=== PATIENT | female | born 1950 | race Caucasian/White ===

== ENCOUNTER → 2017-08-28 08:09 | Outpatient (CLI) | payer MEDICARE, OTHER, SELFPAY ==
[2017-08-29 09:07] LABS: DHEA Sulfate 69.6 ug/dL (20.4-186.6)
[2017-08-29 15:05] LABS: Sex Hormone-binding Globulin 55.1 nmol/L (17.3-125.0)
== END ==
PROVIDERS: Family Provider Family Medicine; PCP Family Medicine; Visit Provider Obstetrics & Gynecology
DX: N95.1 Menopausal and female climacteric states (principal)
CPT/HCPCS: 36415; 82533; 82627; 82670; 84270; 84403; 82626

== ENCOUNTER → 2017-10-09 07:58 | Outpatient (CLI) | payer MEDICARE, OTHER, SELFPAY ==
[2017-10-09 09:31] LABS: Anion Gap 4 (5-15); BUN 25 mg/dL (7-18); Calcium,Total 8.8 mg/dL (8.5-10.1); Chloride 105 mmol/L (98-107); Creatinine, Serum 0.93 mg/dL (0.55-1.02); EST Glomerular Filtration Rate 64 mL/min (>60); Est Glom Filt Rate - Afr Amer 78 mL/min (>60); Estradiol < 11.0 pg/mL; Glucose 93 mg/dL (74-106); Potassium 3.9 mmol/L (3.5-5.1); Sodium Level 140 mmol/L (136-145)
== END ==
PROVIDERS: Family Provider Family Medicine; PCP Family Medicine; Visit Provider Obstetrics & Gynecology
DX: N95.1 Menopausal and female climacteric states (principal)
CPT/HCPCS: 36415; 80048; 82024; 82533; 82627; 82670; 84244; 84270; 84403; 82626

== ENCOUNTER → 2017-10-15 15:14 | Outpatient (CLI) | payer MEDICARE, OTHER, SELFPAY ==
[2017-10-20 11:23] LABS: Renin, Plasma 0.512 ng/mL/hr (0.167-5.380)
== END ==
PROVIDERS: Family Provider Family Medicine; PCP Family Medicine; Visit Provider Obstetrics & Gynecology
DX: N95.1 Menopausal and female climacteric states (principal)
CPT/HCPCS: 84244

== ENCOUNTER → 2017-11-08 15:15 | Outpatient (CLI) | payer MEDICARE, OTHER, SELFPAY ==
--- NOTE | 2017-11-08 15:17 | BI_ITS ---
MAMMOGRAPHY - BILATERAL SCREENING REASON FOR EXAM: Female, 67 years old. Routine annual screening examination. PERTINENT HISTORY: Non-contributory. Remote right excisional breast biopsy. TECHNIQUE: Digital bilateral breast linda (3D mammographic acquisition) in the CC and MLO projections. 2-D mediolateral oblique (MLO) and craniocaudad (CC) views of both breasts were obtained. CAD: Full Field Digital Mammography with Computer Added Detection was performed. COMPARISON: Comparison is made with prior study dated October 05, 2016. FINDINGS: Breast Composition: The breasts are heterogeneously dense, which may obscure small masses. There are no dominant masses or suspicious calcifications. Stable small benign-appearing bilateral axillary lymph nodes. No other significant abnormalities are identified. There has been no significant change since the prior study. BI/SCREENING MAMM (CAD), BILAT IMPRESSION: Stable bilateral screening mammogram. Yearly follow-up mammogram recommended. (A) ASSESSMENT CATEGORY: BIRADS Category 1: Negative. A letter regarding these results will be sent to the patient by the facility within 30 days. Approximately 10% of breast cancers are not detected by mammography. A normal mammogram should not delay biopsy of a clinically suspicious abnormality. [id number] Electronically Signed: Nik Wiggins MD at 8:33 EDT Tel [phone], Service support ,
== END ==
PROVIDERS: Family Provider Family Medicine; PCP Family Medicine; Visit Provider Obstetrics & Gynecology
DX: Z12.31 Encounter for screening mammogram for malignant neoplasm of breast (principal)
CPT/HCPCS: 77063; 77067

== ENCOUNTER → 2018-01-25 11:18 | Outpatient (CLI) | payer MEDICARE, OTHER, SELFPAY | PROVIDERS: Visit Provider Obstetrics & Gynecology | DX: N39.0 Urinary tract infection, site not specified (principal) | CPT/HCPCS: 87086; 87088 ==

== ENCOUNTER → 2018-06-29 16:10 | Outpatient (CLI) | payer MEDICARE, OTHER, SELFPAY | PROVIDERS: Family Provider Family Medicine; PCP Family Medicine; Referring Provider Obstetrics & Gynecology; Visit Provider Obstetrics & Gynecology | DX: R30.0 Dysuria (principal) | CPT/HCPCS: 87086; 87088 ==

== ENCOUNTER → 2018-07-14 12:27 | Outpatient (CLI) | payer MEDICARE, OTHER, SELFPAY ==
--- NOTE | 2018-07-13 | FLU_PTH ---
PATIENT: JASON LOJA LOC: [facility] U#:[id number] AGE/SX: 74/F ROOM: RE07/14/[address]: Dr. Gina Giang MD : 1950 BED: DIS: SPEC #: [id number] RECD: 07/14/18 12:04 STATUS: EDDIE SANJU #: [id number] NOAM: 07/13/18 00:[address]: Gina Giang DEPT: CYTOLOGY RECD BY: Pablo Almazan ENTERED: 07/15/18 07:42 SP TYPE: Fluid OTHR DR: Dr. Diego Hopkins MD Tissues: A - Thyroid gland, NOS B - Thyroid gland, NOS Procedures: Special Stain Group II Surgery Specimen Level IV Cytospin Fluid Cytology Other HEADER OPERATION: Ultrasound-guided right thyroid nodule PRE-OP DIAGNOSIS: Abnormal ultrasound right thyroid TISSUE SUBMITTED: A - Right thyroid aspirate for cytology, B - Right thyroid nodule FNA slides x8 DIAGNOSIS CYTOLOGY A. Fine needle aspiration, right thyroid nodule (cytospin and cell block): Adequate for evaluation. Negative, consistent with benign follicular nodule. B. Fine needle aspiration, right thyroid nodule (smears): Nondiagnostic. See comment. AM:shiraz 07/15/18 COMMENT B. The specimen primarily contains blood. Focal watery type colloid is suspected. Clinical correlation is necessary. CYTOLOGY STUDY Slides are reviewed. CYTOLOGY GROSS A - Received is 30 ml of cloudy brown fluid labeled with the patient's name and and designated per the requisition as right thyroid. Submitted for cytology preparation including cell block. B - Received are eight smears labeled with the patient's name and designated per the requisition as right thyroid nodule. Submitted for staining. 07/14/18 TC:5 CPT: 37070, 33516, 54388
== END ==
PROVIDERS: Family Provider Family Medicine; PCP Family Medicine; Referring Provider Surgery; Visit Provider Surgery
DX: R93.89 Abnormal findings on diagnostic imaging of other specified body structures (principal)
CPT/HCPCS: 88108; 88161; 88305; 88313

== ENCOUNTER → 2018-08-17 09:09 | Outpatient (CLI) | payer MEDICARE, OTHER, SELFPAY ==
--- NOTE | 2018-08-17 09:15 | BD_ITS ---
STUDY: DUAL ENERGY X-RAY ABSORPTIOMETRY / DXA REASON FOR EXAM: Female, 68 years old. The patient is postmenopausal. No loss of height. TECHNIQUE: Bone Mineral Density (BMD) measurements of lumbar spine and bilateral hips were obtained. COMPARISON: None. FINDINGS: Lumbar Spine (L1-L4): g/cm2 (0.891) / T-score (-2.3) / Z-score (-0.7) Findings are suggestive of osteopenia with a high fracture risk. Left Femur Total: g/cm2 (0.710) / T-score (-2.4) / Z-score (-1.0) Left Femoral Neck: g/cm2 (0.637) / T-score (-2.9) / Z-score (-1.3) Right Femur Total: g/cm2 (0.684) / T-score (-2.6) / Z-score (-1.2) Right Femoral Neck: g/cm2 (0.623) / T-score (-3.0) / Z-score (-1.4) BD/Dexa Bone Density Study IMPRESSION: The patient is considered osteoporotic as outlined below according to World Margar[employer] Organization (WHO) criteria with a high fracture risk. Reference Information: The T-score is the number of standard deviations above or below the standard which is normal for young adults at their peak bone mineral density. The World Health Organization (WHO) interprets the T-scores as follows: Above -1 Normal bone density Between -1 and -2.5 Osteopenia Equal to / or below -2.5 Osteoporosis As a practical clinical guideline, osteopenia may be graded as follows: Mild -1 through -1.5 Moderate -1.6 through -2.0 Severe -2.1 through -2.4 The Z-score is the number of standard deviations above or below age-matched controls. A Z-score of less than -1.5 would be considered abnormal. References: 1. NIH Osteoporosis and Related Bone Diseases http://www.osteo.org 2. International Society for Clinical Densitometry http://www.iscd.org 3. National Osteoporosis Foundation http://www.nof.org Electronically Signed: Nki Wiggins, at 9:11 EST , Service support ,
== END ==
PROVIDERS: Family Provider Family Medicine; PCP Family Medicine; Referring Provider Obstetrics & Gynecology; Visit Provider Obstetrics & Gynecology
DX: Z78.0 Asymptomatic menopausal state (principal); M81.0 Age-related osteoporosis without current pathological fracture
CPT/HCPCS: 77080

== ENCOUNTER 2018-08-29 08:56 | Emergency (ER) | payer MEDICARE, OTHER, SELFPAY ==
[2018-08-29 08:57] VITALS: BP 163/73; PULSE 68; RESP 6; TEMP 36.6; O2SAT 97; BMI 30.5
--- NOTE | 2018-08-29 09:12 | RAD_ITS ---
STUDY: X-RAY - LEFT KNEE REASON FOR EXAM: Female, 68 years old. Left knee injury. TECHNIQUE: 3 view(s) of the knee. COMPARISON: None. FINDINGS: Normal visualized distal femur. Normal visualized proximal tibia and fibula. Normal proximal tibiofibular articulation. Normal medial femorotibial compartment. Normal lateral femorotibial compartment. Normal patellofemoral articulation. The soft tissue structures are unremarkable. RAD/Knee 3 Views IMPRESSION: Normal x-ray examination of the knee. Electronically Signed: Nik Wiggins, at 9:45 EDT , Service support ,
[2018-08-29] MEDS: HYDROcodone Bitartrate/Apap 5/325 Tablet PO (09:27)
--- NOTE | 2018-08-29 10:07 | ED.VISSUMM ---
- ER Visit Summary Date of Service: 08/29/18 Chief Complaint: [Injury left knee] History of Present Illness: The patient is a 68 F [presents the emergency department complaint of pain in the left knee that occurred this morning while she was climbing up the steps. Patient states she has had some mild discomfort in her left knee for about a week but when she put weight on it while climbing steps this morning she felt a pop and immediately fell onto her knees. Patient unable to bear weight since that time. Patient states the pain kind of radiated up towards her hip and into her groin.] Physical Examination: [HEENT-PERRLA, EOMI. Cranial nerves II through XII grossly intact. TMs clear. Mucous membranes moist. No adenopathy. Cardiovascular-regular rate and rhythm without murmur or ectopy Lungs-clear to auscultation, chest wall stable without crepitus or subcu emphysema Abdomen-normoactive bowel sounds, soft, nontender, no rebound or rigidity, no peritoneal signs. Extremities-intact ?4, normal range of motion, normal pulses, atraumatic. Left knee-patient has no effusion noted. Patient has pain with range of motion in the knee. She does not tolerate ligamentous exam secondary to pain. She is neurovascular intact distally. She has no tenderness over the hip with logrolling.] Test Results: [X-rays of the left knee obtained showed no fractures or dislocations.] Emergency Department Course and Treatment: [Patient was given a dose of Centrahoma in the emergency department. Patient was given a knee immobilizer and crutches.] Treatment Plan: [Patient will be given crutches, knee immobilizer, and referral to orthopedics] Disposition: [Discharged home in stable condition] Impression: [Left knee sprain-possible internal derangement] This note was generated with [employer] dictation software. It may contain incorrect words, spelling, and punctuation that were not noted in review of the chart prior to signing ED Disposition - Plan for ED Patient: Referrals: Diego Hopkins MD [Primary Care Provider] -
--- NOTE | 2018-08-29 10:10 | DCINST.ED_ITS ---
ED Disposition - Plan for ED Patient: Instructions: ED Meniscal Injury Knee Poss Prescriptions: Hydrocodone Bitart/Apap 5-325 [[place] 5MG-325MG] 1 tab PO Q4H PRN PRN 2 Days #20 tab PRN Reason: Pain Referrals: Diego Hopkins MD [Primary Care Provider] - Scott Lima MD [STAFF PHYSICIAN] - 3-5 Days
== END 2018-08-29 10:59 | disposition home or self-care (01) ==
LOC: ED 09:22
PROVIDERS: Emergency Provider Emergency Medicine; Family Provider Family Medicine; PCP Family Medicine
DX: S83.92XA Sprain of unspecified site of left knee, initial encounter (principal); W10.9XXA Fall (on) (from) unspecified stairs and steps, initial encounter; Y93.9 Activity, unspecified; Y92.9 Unspecified place or not applicable; Y99.9 Unspecified external cause status; I10 Essential (primary) hypertension; M19.90 Unspecified osteoarthritis, unspecified site; J45.909 Unspecified asthma, uncomplicated
CPT/HCPCS: 73562; 99285

== ENCOUNTER → 2018-09-10 07:26 | Outpatient (CLI) | payer MEDICARE, OTHER, SELFPAY ==
[2018-08-29 08:57] VITALS: BMI 30.5
[2018-09-10 08:42] LABS: Hematocrit 40.4 % (37-47); Hemoglobin 13.4 g/dl (12.0-15.0); Mean Corp Hgb Conc 33.2 g/gl (32-36); Mean Corpuscular Hgb 30.3 pg (27.0-32.0); Mean Corpuscular Volume 91.4 fL (81-99); Mean Platelet Vol. 9.2 fl (6.2-12.0); Platelet Count 316 K/mm3 (150-450); RBC Distribution Width CV 13.3 % (11.6-14.6); RBC Distribution Width SD 43.9 fl (35.1-43.9); Red Blood Count 4.42 M/mm3 (4.2-5.4); White Blood Count 4.8 K/mm3 (4.4-11.0)
[2018-09-10 08:54] LABS: Scan Indicated on CBC? Y/N NO
[2018-09-10 08:55] LABS: Erythrocyte Sedimentation Rate 14 mm/hr (0-30)
[2018-09-10 09:38] LABS: AST(SGOT) 18 U/L (15-37); Alanine Aminotransfer ALT/SGPT 32 U/L (13-56); Albumin, Serum 3.4 g/dL (3.2-5.0); Alkaline Phosphatase 69 U/L (45-117); Bilirubin, Direct 0.16 mg/dL (0.00-0.30); CRP 5.04 mg/L (0.0-3.0); Calcium,Total 8.4 mg/dL (8.5-10.1); Globulin 3.4 g/dL (2.2-4.2); Phosphorus 3.3 mg/dL (2.5-4.9); Protein, Total 6.8 g/dL (6.4-8.2)
[2018-09-10 10:35] LABS: PTHIN 38.4 pg/mL (18.4-80.1)
[2018-09-10 10:36] LABS: Vitamin D,25 Hydroxy 25.4 ng/mL (29.95-100.01)
== END ==
PROVIDERS: Family Provider Internal Medicine; PCP Internal Medicine; Referring Provider Internal Medicine; Visit Provider Internal Medicine
DX: M81.0 Age-related osteoporosis without current pathological fracture (principal); Z78.0 Asymptomatic menopausal state
CPT/HCPCS: 36415; 80076; 82306; 82310; 83970; 84100; 85027; 85652; 86140

== ENCOUNTER → 2018-10-04 07:46 | Outpatient (CLI) | payer MEDICARE, OTHER, SELFPAY ==
--- NOTE | 2018-10-04 08:12 | EKG12_ITS ---
Test Reason : PREOP Blood Pressure : / mmHG Vent. Rate : 068 BPM Atrial Rate : 068 BPM P-R Int : 170 ms QRS Dur : 086 ms QT Int : 410 ms P-R-T Axes : 053 -02 014 degrees QTc Int : 435 ms Normal sinus rhythm Poor R wave progression Confirmed by HERMELINDO GARCIA, KARIS ([id number]), television news video editor SEAMUS MANCIA ([id number]) on 10/04/2018 3:54:09 PM Referred By: Oliver Loco Confirmed By:KARIS CASAREZ MD
[2018-10-04 08:23] LABS: Hematocrit 39.8 % (37-47); Hemoglobin 13.4 g/dl (12.0-15.0); Mean Corp Hgb Conc 33.7 g/gl (32-36); Mean Corpuscular Hgb 30.1 pg (27.0-32.0); Mean Corpuscular Volume 89.4 fL (81-99); Mean Platelet Vol. 8.6 fl (6.2-12.0); Platelet Count 299 K/mm3 (150-450); RBC Distribution Width CV 13.1 % (11.6-14.6); RBC Distribution Width SD 42.9 fl (35.1-43.9); Red Blood Count 4.45 M/mm3 (4.2-5.4); White Blood Count 4.3 K/mm3 (4.4-11.0)
[2018-10-04 08:24] LABS: Scan Indicated on CBC? Y/N NO
[2018-10-04 09:01] LABS: Anion Gap 3 (5-15); BUN 18 mg/dL (7-18); BUN/Creat Ratio 22.1 RATIO (10-20); Calcium,Total 8.8 mg/dL (8.5-10.1); Chloride 107 mmol/L (98-107); Creatinine, Serum 0.82 mg/dL (0.55-1.02); EST Glomerular Filtration Rate 74 mL/min (>60); Est Glom Filt Rate - Afr Amer 90 mL/min (>60); Glucose 93 mg/dL (74-106); Potassium 3.8 mmol/L (3.5-5.1); Sodium Level 140 mmol/L (136-145)
== END ==
PROVIDERS: Family Provider Internal Medicine; PCP Internal Medicine; Referring Provider Physician Assistant Surgical; Visit Provider Physician Assistant Surgical
DX: Z01.818 Encounter for other preprocedural examination (principal)
CPT/HCPCS: 36415; 80048; 85027; 93005

== ENCOUNTER → 2018-11-09 14:57 | Outpatient (CLI) | payer MEDICARE, OTHER, SELFPAY ==
--- NOTE | 2018-11-09 15:00 | BI_ITS ---
MAMMOGRAPHY - BILATERAL SCREENING REASON FOR EXAM: Female, 68 years old. Routine annual screening examination. PERTINENT HISTORY: Non-contributory. Prior bilateral breast aspirations. TECHNIQUE: Digital bilateral breast linda (3D mammographic acquisition) in the CC and MLO projections. 2-D mediolateral oblique (MLO) and craniocaudad (CC) views of both breasts were obtained. CAD: Full Field Digital Mammography with Computer Added Detection was performed. COMPARISON: Comparison is made with prior study dated November 08, 2017 and October 05, 2016. FINDINGS: Breast Composition: The breasts are heterogeneously dense, which may obscure small masses. There are no dominant masses or suspicious calcifications. Stable small bilateral axillary lymph nodes. No other significant abnormalities are identified. There has been no significant change since the prior study. BI/SCREENING MAMM (CAD), BILAT IMPRESSION: Stable bilateral screening mammogram. Yearly follow-up mammogram recommended. (A) ASSESSMENT CATEGORY: BIRADS Category 2: Benign. A letter regarding these results will be sent to the patient by the facility within 30 days. Approximately 10% of breast cancers are not detected by mammography. A normal mammogram should not delay biopsy of a clinically suspicious abnormality. [id number] Electronically Signed: Nik Wiggins, at 8:38 EDT , Service support ,
== END ==
PROVIDERS: Family Provider Internal Medicine; PCP Internal Medicine; Referring Provider Obstetrics & Gynecology; Visit Provider Obstetrics & Gynecology
DX: Z12.31 Encounter for screening mammogram for malignant neoplasm of breast (principal)
CPT/HCPCS: 77063; 77067

== ENCOUNTER → 2019-04-06 08:48 | Outpatient (CLI) | payer MEDICARE, OTHER, SELFPAY ==
--- NOTE | 2019-04-06 08:51 | BI_ITS ---
MAMMOGRAPHY - UNILATERAL DIAGNOSTIC: RIGHT BREAST REASON FOR EXAM: Female, 68 years old. Right breast pain. Remote right excisional breast biopsy. PERTINENT HISTORY: Non-contributory. TECHNIQUE: Digital unilateral breast linda (3D mammographic acquisition) in the CC and MLO projections. 2-D mediolateral oblique (MLO) and craniocaudad (CC) views of both breasts were obtained. CAD: Full Field Digital Mammography with Computer Added Detection was performed. COMPARISON: Comparison is made with prior study November 09, 2018 and November 08, 2017. FINDINGS: Breast Composition: The breasts are heterogeneously dense, which may obscure small masses. There are no dominant masses or suspicious calcifications. Stable benign-appearing left axillary lymph nodes. No other significant abnormalities are identified. There has been no significant change since the prior study. BI/DIAG MAMM W/CAD, UNILAT IMPRESSION: Stable unilateral diagnostic mammogram. With the patient's history of right breast pain, correlation with ultrasound is recommended. ASSESSMENT CATEGORY: BIRADS Category 0: Incomplete. Need additional imaging evaluation. A letter regarding these results will be sent to the patient by the facility within 30 days. Approximately 10% of breast cancers are not detected by mammography. A normal mammogram should not delay biopsy of a clinically suspicious abnormality. Electronically Signed: Nik Wiggins, at 12:34 EDT , Service support ,
--- NOTE | 2019-04-06 08:51 | US_ITS ---
STUDY: ULTRASOUND BREAST - RIGHT REASON FOR EXAM: Female, 68 years old. Breast pain. Abnormal screening mammogram. TECHNIQUE: Axial and longitudinal images of the RIGHT breast were performed with a high resolution ultrasound transducer. COMPARISON: Comparison is made with prior mammogram done earlier in the day as well as prior mammogram dated November 09, 2018. FINDINGS: RIGHT Breast: 3 small cysts are seen at the 9:00 position of the breast at 5 cm and 3 cm from the nipple. The largest measures 3 mm x 2 mm x 2 mm. US/Breast Limited Unilateral IMPRESSION: 3 subcentimeters cysts are seen at 9:00 position of the breast at 5 cm and 3 cm from nipple. ASSESSMENT CATEGORY: BIRADS Category 2: Benign. A letter regarding these results will be sent to the patient by the facility within 30 days. Electronically Signed: Nik Wiggins, at 9:44 EDT , Service support ,
== END ==
PROVIDERS: Family Provider Internal Medicine; PCP Internal Medicine; Referring Provider Obstetrics & Gynecology; Visit Provider Obstetrics & Gynecology
DX: N64.4 Mastodynia (principal)
CPT/HCPCS: 76642; 77061; 77065; G0279

== ENCOUNTER 2019-06-14 03:18 | Emergency (ER) | payer MEDICARE, OTHER, SELFPAY ==
[2019-06-14 03:21] VITALS: BP 183/86; PULSE 72; RESP 16; TEMP 36.5; O2SAT 98; BMI 28.3
[2019-06-14] MEDS: Orphenadrine 60 MG/2 ML Ampul IM (03:41)
[2019-06-14] MEDS: morphine 10 MG/ML Syringe 4 MG SC (03:41)
[2019-06-14] MEDS: HYDROmorphone 1 MG/ML Syringe SC (04:30)
[2019-06-14] MEDS: Ondansetron ODT 4 MG Tablet 8 MG PO (04:32)
--- NOTE | 2019-06-14 04:46 | ED.VISSUMM ---
- ER Visit Summary Date of Service: 06/14/19 Chief Complaint: Left hip pain History of Present Illness: The patient is a 68 F with left hip pain. On further discussion, the pain actually starts in her mid left buttock and radiates down her left leg. This has been going on for weeks but was worse tonight. Worse from using an ice pack and laying down. Worse with use and movement. Nothing seems to make it better. She has seen orthopedics and a chiropractor. She has had x-rays and injections, but nothing seems to help. Denies any interval injury or new or different symptoms. Physical Examination: Blood pressure 183/86. Otherwise vitals normal. Afebrile. Patient appears uncomfortable but is moving her left leg and back freely. Normal inspection. No shortening or abnormal rotation. Range of motion intact. Neurovascular intact distally, symmetric. Strength and sensation intact, symmetric. Back is nontender. Test Results: None indicated. Patient already had lumbar and hip x-rays as an outpatient for this. Emergency Department Course and Treatment: Symptoms sound like a sciatica. Patient had outpatient x-rays. No vascular, , [employer], or GI symptoms. Patient was treated with Norflex and morphine. She had no improvement. Patient received Dilaudid. She said she had minimal improvement. She was moving her leg freely without difficulty. I believe she is appropriate for outpatient care. She was given a short course of pain medicine. She will follow-up with her orthopedic doctor. Return for any new or worsening issues. Treatment Plan: As above Disposition: Discharge Impression: 1. Left side sciatica This note was generated with [employer] dictation software. It may contain incorrect words, spelling, and punctuation that were not noted in review of the chart prior to signing ED Disposition - Plan for ED Patient: Instructions: Understanding Sciatica Prescriptions: Oxycodone HCl/Acetaminophen [Percocet 5/325] 1 tab PO Q6H PRN PRN 3 Days #10 tab PRN Reason: Pain Prescription Printed Referrals: Gaby Gilliland DO [Primary Care Provider] -
[2019-06-14 05:01] VITALS: BP 166/63; PULSE 75; RESP 20; O2SAT 97
== END 2019-06-14 05:03 | disposition home or self-care (01) ==
LOC: ED 03:48
PROVIDERS: Emergency Provider Emergency Medicine; Family Provider Internal Medicine; PCP Internal Medicine
DX: M54.32 Sciatica, left side (principal)
CPT/HCPCS: 96372; 99283

== ENCOUNTER → 2019-07-24 12:37 | Outpatient (CLI) | payer MEDICARE, OTHER, SELFPAY ==
--- NOTE | 2019-07-24 12:42 | CT_ITS ---
STUDY: CT SCAN HIP LEFT REASON FOR EXAM: Female, 68 years old. OSTEOARTHRITIS, LANDY HIP RADIATION DOSAGE (If Supplied By Facility): CTDIvol = ( 12.79 ) mGy, DLP = ( 712.44 ) mGycm. Individualized dose optimization techniques were used for this CT.? TECHNIQUE: Multiple axial tomographic images of the hip joints were obtained without intravenous contrast administration. Sagittal and coronal reconstruction was obtained as well. COMPARISON: None. FINDINGS: Moderate degree of joint space narrowing of both hip joints. There is no evidence of subluxation or dislocation. No bony lesion is seen. Degenerative changes of the sacroiliac joints bilaterally as well as the lower lumbar spine. CT/Extremity Lower without Contra IMPRESSION: Moderate degree of osteoarthritis involving both hip joints. Electronically Signed: Nik Wiggins, at 15:25 EST , Service support ,
== END ==
PROVIDERS: PCP Internal Medicine; Referring Provider Specialist; Visit Provider Specialist
DX: M16.12 Unilateral primary osteoarthritis, left hip (principal)
CPT/HCPCS: 73700

== ENCOUNTER 2019-08-16 10:57 | Observation (INO) | payer MEDICARE, OTHER, SELFPAY ==
--- NOTE | 2019-07-22 07:07 | PCM.HP.BLA ---
History and Physical History and Physical [facility] Patient Name: Donya Thomas : 1950 From: PAZ TAFOYA PA-C DATE OF SURGERY: 08/16/2019 SCHEDULED PROCEDURE: left total hip arthroplasty HISTORY OF PRESENT ILLNESS: Preoperative history and physical exam was performed on July 20, 2019. This is a 68-year-old female who is complaining of significant left hip pain. Patient has had a previous left knee arthroscopy with partial medial meniscectomy and chondroplasty. She developed left hip pain. Pain goes from the buttocks and wraps around into the groin. She has pain and does waken her at night. She does complain of startup pain. Patient has increased pain going up and down stairs, walking, and sitting. Patient has had a previous intra-articular left hip injection on April 20, 2019. Patient only had 4 days of relief after the injection. She continues to complain of significant groin pain. Pain can reach as high as a 7/10. Patient is unable to take nonsteroidal anti-inflammatories secondary to GI upset. Patient denies previous surgery on the left hip. Patient currently denies any chest pain, shortness of breath, fevers chills, recent infections. We are obtaining surgical clearance from patient's primary care physician Dr. Gilliland. After failure of conservative measures and discussing continued treatment with Dr. Brock Zhang, the patient does wish to proceed with a left total hip arthroplasty. Impression has medical history pertinent for hypertension, asthma, and thyroid disease. REVIEW OF SYSTEMS: ROS: Const: Reports weight change, but denies change in appetite and fever. CV: Denies chest pain, heart murmur and irregular heartbeat. Resp: Reports cough and wheezing, but denies pneumonia, shortness of breath and tuberculosis. GI: Reports heartburn, but denies constipation, diarrhea, nausea, rectal itching, bloody stools and vomiting. : Denies incontinence. Musculo: Reports leg swelling, but denies pain, trouble walking and weakness. Skin: Denies Raynaud's, history of shingles and tattoo. Neuro: Denies ambulatory dysfunction, dizziness, numbness/tingling and tremor. Psych: Reports stress, but denies anxiety and insomnia. [place]/Lymph: Denies anemia, bleeding/bruising tendency and past transfusion. Reviewed, no changes. PAST MEDICAL HISTORY: Advance Care Plan: No Advance Directives Effective Date: 09/01/2018 PMH: Medical Problems: Arthritis, Asthma, High Blood Pressure, Osteoporosis Thyroid Disease - Goiter Accidents: None Surgical Hx: Tonsillectomy - (1954) Dr. Gallegos Knee Arthroscopy LT - Jose E Conn 10/07/2018 [facility] Carpal Tunnel Release LT - [facility] , Dr. Antonio Carpal Tunnel Release RT - [facility] , Dr. Antonio RT Breast Lump Removed, Errol Cataract, RT Eye Lid Lifted LT Knee Arthroscopy - (10/07/2018) [email or web address] Anesthesia Complications: Anesthesia Complications Assistive Devices: Glasses Reviewed and updated. SOCIAL HISTORY: SH: Marital: Single.Occupation: Retired Teacher - graduate teacher education.Work Status: Currently Working, Retired.Hand Dominance: Right-handed. Personal Habits: Cigarette Use: Never Smoked Cigarettes.Smokeless Tobacco: Never Used Smokeless Tobacco.E-Cigarette Use: Never used.Alcohol: Occasionally.Drug Use: Denies Use.Enjoy Exercising: Daily. Reviewed, no changes. VITALS: Ht: 62 Wt: 157lb 4oz Wt k.329 BMI: 28.8 BP: 132/76 Pulse: 76 Resp: 16 T: 96.8 T: 36.0C ALLERGIES: Sulfa - rash Macrobid - rash Terramycin - hives Erythromycin - hives Latex Nickel MEDICATIONS: Meloxicam 7.5 mg 1 by mouth twice a day, Citalopram Hydrobromide 20 mg 1 by mouth every day, Triamterene/Hydrochlorothiazide 37.5-25 mg 1 by mouth every day, Acyclovir 400 mg 1 by mouth every day, Biotin 1000 mcg 4 po qd, Fish Oil Concentrate 300 mg once daily, Vitamin B-12 1000 mcg 1 by mouth every day, Vitamin D 1 tab by mouth daily PRE-OP EXAM: General appearance:NORMAL Other: Eyes: Conjunctivae and lids: NORMAL Pupils: ERR Ears, Nose, Mouth, and Throat: NORMAL Other: Inspection of lips, teeth and gums: NORMAL Other: Neck: Examination of neck: no masses noted. Respiratory: Assessment of respiratory effort: NORMAL Other: Auscultation of lungs: clear to auscultation no wheezes, rhonchi or rales. Cardiovascular: Auscultation of heart: regular rate and rhythm, no murmurs, gallops or rubs. Exam of carotid arteries: NORMAL Other: Gastrointestinal: Exam of abdomen: soft, nontender, nondistended bowel sounds present. PHYSICAL EXAMINATION: Patient walks with an antalgic gait. Posterior lateral trochanteric tenderness to palpation. She also complains of numbness and tingling down the left leg. Range of motion: Auditory external rotation with flexion, hip flexion 90, internal rotation 15, external rotation 35. IMAGING STUDIES: Previous x-rays reveal joint space narrowing with subchondral sclerosis and osteophyte formation consistent with moderate to severe left hip osteoarthritis IMPRESSION: 1. Left hip moderate to severe osteoarthritis 2. Hypertension 3. Asthma 4. Thyroid disease 5. Osteoporosis PLAN: Dr. Brock Zhang did discuss and review with the patient all treatment options including surgical versus nonsurgical options. Patient does wish to proceed with the above-stated procedure. Potential risks, benefits, and complications of the procedure were discussed in detail including but not limited to , infection, nerve and blood vessel damage, persistent pain, numbness, tingling, paresthesias, blood clot, pulmonary embolism, and requirement for possible further surgery. The patient expressed full understanding and has no further questions for the doctor. Patient does agree to proceed with the above-stated procedure and has signed the surgery consent form. This dictation was created using voice recognition software. Phonetic and/or grammatical errors may exist. ___ I have re-examined the patient. There are no clinical changes since date of exam. ___ See progress notes for changes. ___ Dictated on admission Date: Time: Signature:
[2019-07-24 14:36] VITALS: BP 136/77; PULSE 75; RESP 16; TEMP 36.6; O2SAT 95; BMI 28.8
[2019-08-16] VITALS (15 sets, daily range): BP systolic 111–135; BP diastolic 48–83; PULSE 78–94; RESP 16–18; TEMP 36.3–37; O2SAT 93–100; BMI 28.8; BMI 28.9
[2019-08-16 11:51] LABS: Bedside Glucose 127 mg/dL (70-110)
[2019-08-16] MEDS: Lactated Ringers 1,000 ML 100 ML IV ×2 (11:57→16:20)
[2019-08-16] MEDS: Acetaminophen 500 MG Tablet 1000 MG PO ×2 (11:58→20:56)
[2019-08-16] MEDS: Gabapentin 600 MG Tablet PO (11:58)
[2019-08-16] MEDS: Lactated Ringers 1,000 ML 999 ML IV ×2 (13:09→15:00)
--- NOTE | 2019-08-16 13:15 | RAD_ITS ---
STUDY: X-RAY - PELVIS AND LEFT HIP REASON FOR EXAM: Female, 69 years old. ANTERIOR TOTAL HIP TECHNIQUE: 2 fluoroscopic spot views of the pelvis and hip. 3 second fluoroscopy time and 0.27 mg COMPARISON: None. FINDINGS: Total hip arthroplasty on the left in anatomic alignment. RAD/Hip 1 view with Pelvis IMPRESSION: Please correlate with clinical service Electronically Signed: Elias Pace MD at 16:07 EST , Service support ,
[2019-08-16] MEDS: Cefazolin 2 GM in 0.9% Normal Saline 100 ML IV (13:45)
[2019-08-16] MEDS: dexAMETHasone 10 MG/ML Vial IV (13:45)
--- NOTE | 2019-08-16 15:00 | OP.PCM_ITS ---
Report of Operation Date of Procedure: 08/16/19 Pre-Operative Diagnosis: Left hip primary osteoarthritis Post-Operative Diagnosis: Left hip primary osteoarthritis Surgery/Procedure Performed:: Left minimally invasive robotic assisted direct anterior total hip replacement Description of Surgical Findings:: Stable hip, equal leg lengths utilities ground worker: Jarek Loco Type of Anesthesia:: Spinal Anesthesiologist: Trevon Richards Special Medications: 2 g Ancef, 1 g TXA at incision, 1 g TXA closure, 10 mg Decadron, joint cocktail (5 mg Duramorph, 30 mL of 0.5% Ropivicaine, 1000 units of epinephrine, 30 mg of Toradol) Specimen's removed: Bony cuts Estimated Blood Loss (mL): 200 Fluids Replaced: 1500 mL crystalloid Description of Procedure: components used: 1. Accolade 2 Mik femoral stem size 3 132? 2. Mik trident 2 acetabular shell size 46 mm 3. Mik X3 polyethylene C 4. Mik Biolox delta 32 mm, +4 mm femoral head Brief history operative indications: 69 yo F who failed conservative measures for their hip osteoarthritis. X-rays were consistent with osteoarthritis including joint space narrowing, osteophyte formation and subchondral cysts. Total hip replacement was discussed with the patient with risks and benefits including but not limited to blood loss, DVTs, PEs, neurovascular damage, dislocation, general risks of anesthesia including loss of life. Patient demonstrated an understanding medical clearance is obtain ed the patient was consented for surgery. Procedure: On the date of procedure the patient's L hip was marked in the preoperative area. Patient was then taken back to the operating room where anesthesia assumed control of the C-spine and airway and administered anesthetic. Patient was transferred to the operating table and placed in the supine position. The hips were placed at the break of the bed and a sacral bump was placed. A checkpoint was placed on the tibial tubercle. The L lower extremity was then prepped out in a sterile fashion using chlorhexidine while the surgeon scrubbed. The PA was vital in the positioning of the patient. Upon reentering the room the L lower extremity was draped in the standard orthopedic fashion and the incision was marked. A timeout was called and kermit ron agreed upon the side, the site, the procedure be performed, antibody given, and patient's identity. 3 pins were placed in the right iliac crest with a small skin incision and blunt dissection down to the bone. After the skins were placed in a ray was placed for targeting. At this time left hip operative incision was made through skin, subcutaneous tissue, and fat down to fascia. The fascia was then incised and the TFL was retracted laterally. A retractor was placed on the lateral border of the femoral neck. Attention was directed to the inferior portion of the approach and all crossing vessels were identified and appropriately coagulated. A retractor was then placed on the medial portion of the femoral neck. The anterior capsule was then cleared of all soft tissue and then H shaped capsulotomy was made. The retractors were then placed inside the capsule. The checkpoint was placed. The checkpoints were registered. The femoral neck was identified and a cleanup cut was made. At this time a power corkscrew was used to remove the femoral head. Attention was then turned toward the acetabulum where the soft tissues were appropriately retracted and debrided. The acetabulum was registered. The robot was brought into the field sterilely and the acetabulum was reamed to 46 mm. A 46 mm cup was then selected and impacted into place. Acetabular liner was impacted into place and locking mechanism was verified. The position of the acetabular cup was then verified under live fluoroscopy. Attention was then turned to the femur. Soft tissue releases on the medial and lateral femoral neck were appropriately done, the leg was externally rotated and lateralized. A Hernandez retractor was placed medially and proximally to the greater trochanter this allowed appropriate visualization and exposure of the femoral canal. Rongeour was then used to remove excess lateral bone. A canal finder and entry broach were used to open the proximal canal. Once we verified we were down the femoral canal we subsequently broached up to a size 3 femur. The appropriate neck was placed in the previously selected head was trialed with a +4 mm neck. Traction was pulled and the hip was reduced with internal rotation. Once it was appropriately reduced and stability was checked. There was minimal shuck, equal leg lengths and appropriate stability with hyperextension and external rotation as well as with 90? flexion and internal rotation. Fluoroscopy was then also used to verify the position of the components and leg lengths using the contralateral side for comparison. The trial components were then dislocated the proximal femur was again exposed and the components were removed from the wound. The final components were verified and opened. The wound was copiously irrigated out with normal saline. The acetabulum was checked for any residual debris. The final components were placed and impacted. Traction and internal rotation were again used to reduce the hip. After adequate reduction the hip remained stable with appropriate leg lengths. The final components were once again checked with live fluoroscopy and were found to be satisfactory. The wound was then copiously irrigated with normal saline once more, and hemostasis was obtained. Closure was then done using #1 Vicryl runner to close the fascia. A 2-0 vicryl interuppted sutures were used to close the subcutaneous skin. A 3-0 Monocryl and Steri-Strips were used for final skin closure. the pins were removed and pin sites closed. A sterile dressing was placed. Patient was awakened by nikita stern and [facility] Patient was then transferred to the PACU for recovery. Postoperative plan: Patient will get 24 hours postop antibiotics. Patient will get in-house physical therapy and will be weight-bear as tolerated. Patient will follow up in office in 2 weeks for a wound check and x-rays. During the course of the procedure the physician health care legal assistant played a vital role. His intimate knowledge of my steps in the procedure aided in safe and expedient completion of the procedure. The PA played a vital rolls in positioning particularly in obtaining the appropriate positioning of the sacral bump. The PA was also vital in the retraction of soft tissues during the exposure and especially the femoral work as this is a vital part of the procedure to prevent complications and fractures. The PA was also vital and protecting soft tissues during times of bony cuts and reaming. He also played a vital role in closure with my direct supervision. The PA was also important during reduction and dislocation of the joint and trials intraoperatively. Grafts/Implants Used: Mik - Complications No intraoperative complications - Admit VTE Documentation VTE Present on Admission: No VTE Mechan Device Prophylaxis: SCD's, Thigh High DANA Hose VTE Pharm Prophylaxis ordered?: Yes
--- NOTE | 2019-08-16 15:50 | RAD_ITS ---
STUDY: X-RAY - PELVIS AND LEFT HIP REASON FOR EXAM: Female, 69 years old. POST OP LEFT HIP TECHNIQUE: 2 views of the pelvis and hip. COMPARISON: None. FINDINGS: There is a non-specific bowel gas pattern. Normal visualized soft tissue structures. Normal bilateral iliac wings, sacroiliac joints and visualized sacrum. Normal bilateral superior and inferior pubic rami. Normal pubic symphysis. Normal bilateral ischial tuberosities. total hip arthroplasty on the left. Subcutaneous gas at the left periarticular region. Normal right hip. RAD/Hip Min 2 Views (Portable) IMPRESSION: Total hip arthroplasty on the left Electronically Signed: Elias Pace MD at 16:37 EST , Service support ,
[2019-08-16] MEDS: Scopolamine 1mg/72hr Patch 1 PATCH TD (16:37)
[2019-08-16] MEDS: Morphine 2 MG/ML Syringe IV (18:17)
[2019-08-16] MEDS: Lactated Ringers 1,000 ML 125 ML IV (18:17)
[2019-08-16] MEDS: Aspirin 81 MG TAB.CHEW PO (18:22)
[2019-08-16] MEDS: Cefazolin 1 GM/50 ML BAG IV (20:56)
[2019-08-16] MEDS: Senna/Docusate Sodium 1 Tablet 2 TABLET PO (20:56)
[2019-08-16] MEDS: Ketorolac 15 MG/ML Vial IV (22:14)
[2019-08-17 03:48] VITALS: BP 132/72; PULSE 72; RESP 16; TEMP 36.6; O2SAT 95
[2019-08-17] MEDS: Acetaminophen 500 MG Tablet 1000 MG PO (05:04)
[2019-08-17] MEDS: Cefazolin 1 GM/50 ML BAG IV (05:04)
[2019-08-17] MEDS: Ketorolac 15 MG/ML Vial IV (05:22)
[2019-08-17 06:20] LABS: Hematocrit 36.2 % (37-47); Hemoglobin 11.9 g/dL (12.0-15.0); Mean Corp Hgb Conc 32.9 g/dL (32-36); Mean Corpuscular Hgb 30.1 pg (27.0-32.0); Mean Corpuscular Volume 91.6 fL (81-99); Mean Platelet Vol. 8.7 fl (6.2-12.0); Platelet Count 268 K/mm3 (150-450); RBC Distribution Width CV 12.2 % (11.6-14.6); RBC Distribution Width SD 41.1 fl (35.1-43.9); Red Blood Count 3.95 M/mm3 (4.2-5.4); White Blood Count 12.7 K/mm3 (4.4-11.0)
[2019-08-17 06:35] LABS: Anion Gap 6 (5-15); BUN 23 mg/dL (7-18); BUN/Creat Ratio 23.6 RATIO (10-20); Chloride 107 mmol/L (98-107); Creatinine, Serum 0.97 mg/dL (0.55-1.02); EST Glomerular Filtration Rate 60 mL/min (>60); Est Glom Filt Rate - Afr Amer 73 mL/min (>60); Estimated Creatinine Clearance 43.29 ml/min; Glucose 136 mg/dL (74-106); Potassium 3.9 mmol/L (3.5-5.1); Sodium Level 140 mmol/L (136-145)
[2019-08-17 07:32] VITALS: O2SAT 96
--- NOTE | 2019-08-17 08:46 | PN.ORTHO_ITS ---
Subjective: The patient was sitting in bedside chair upon examination. Patient denies any chest pain, shortness of breath, dizziness, lightheadedness, nausea or vomiting, or calf pain. Pain is controlled on medications. No adverse overnight events. Patient does have pain in her postoperative left hip but is controlled with medications. She is complaining of some congestion. She states this does happen to her with weather changes and with any stress. She denies chest pain or shortness of breath. No coughing at this time. Objective: Vital signs stable and afebrile. Patient is able to plantarflex and dorsiflex actively. Sensation is intact to light touch to saphenous, sural, superficial and deep peroneal, and tibial distribution. Left hip dressing is clean dry and intact. Right hip dressing with mild discharge otherwise intact. Negative Homans bilaterally, negative signs and symptoms of DVT. - Physical Exam Vitals/I&O's: Vital Signs Temp Pulse Resp BP Pulse Ox 97.9 F 72 16 132/72 H 95 08/17/19 03:48 08/17/19 03:48 08/17/19 03:48 08/17/19 03:48 08/17/19 03:48 Oxygen Flow Rate (L/min) 2 Oxygen Delivery Method Room Air Weight: 71.6 kg Body Mass Index (BMI) 28.8 Intake and Output for Last 24 Hours 08/15/19 08/16/19 08/17/19 23:59 23:59 23:59 Intake Total 3500 / 3850 1880 / 1880 Balance 3500 / 3850 1880 / 1880 General: Alert, Oriented x3, Cooperative, No apparent distress Laboratory Results 08/16/19 11:43: POC Glucose 127 H 08/17/19 06:05: WBC 12.7 H, RBC 3.95 L, Hgb 11.9 L, Hct 36.2 L, MCV 91.6, MCH 30.1, MCHC 32.9, RDW Std Deviation 41.1, RDW Coeff of Mary 12.2, Plt Count 268, MPV 8.7 08/17/19 06:05: Sodium 140, Potassium 3.9, Chloride 107, Carbon Dioxide 27.0, Anion Gap 6, BUN 23 H, Creatinine 0.97, Estim Creat Clear Calc 43.29, Est GFR (MDRD) Af Amer 73, Est GFR (MDRD) Non-Af 60, BUN/Creatinine Ratio 23.6 H, Glucose 136 H, Calcium 9.0 Current Medications Acetaminophen (Tylenol) 1,000 mg PO Q8 [facility] Last Admin: 08/17/19 05:04 Dose: 1,000 mg Documented by: Acyclovir (Zovirax) 400 mg PO DAILY [facility] Albuterol Sulfate (Ventolin Aerosols) 2.5 mg INHALATION Q4H PRN PRN Reason: SOB AND/OR WHEEZING [facility], [facility] Last Admin: 08/16/19 18:22 Dose: 81 mg Documented by: Citalopram Hydrobromide (Celexa) 20 mg PO DAILY [facility] Enteral Nutritional Formula (Ensure Surgery) 237 ml PO TIDCM [facility] Last Admin: 08/16/19 18:22 Dose: Not Given Documented by: Famotidine (Pepcid) 20 mg PO DAILY [facility] Sodium Chloride () 250 mls @ 15 mls/hr IV .[id number] PRN PRN Reason: Saline Flush Ketorolac Tromethamine (Toradol (Bkc)) 15 mg IV Q6H PRN PRN PRN Reason: Pain Score 1-5/10 Last Admin: 08/17/19 05:22 Dose: 15 mg Documented by: Meloxicam (Mobic) 7.5 mg PO BID [facility] Morphine Sulfate () 2 - 4 mg IV Q2H PRN PRN PRN Reason: Pain Score 4-10/10 Last Admin: 08/16/19 18:17 Dose: 2 mg Documented by: Morphine Sulfate () 2 - 4 mg IV Q2H PRN PRN PRN Reason: Pain Score 4-10/10 Ondansetron HCl (Zofran) 4 mg IV Q8H PRN PRN PRN Reason: NAUSEA Promethazine HCl (Phenergan) 12.5 mg IM Q6H PRN PRN; Protocol PRN Reason: NAUSEA/VOMITING Senna/Docusate Sodium (Senokot-S, Dayana-Colace) 2 tablet PO BID [facility] Last Admin: 08/16/19 20:56 Dose: 2 tablet Documented by: Sodium Chloride () 10 - 40 ml IV UD PRN PRN Reason: SALINE FLUSH Tramadol HCl (Ultram) 50 - 100 mg PO Q6H PRN PRN PRN Reason: Pain Score 4-10/10 Triamterene/HCTZ (Dyazide (G)) 1 cap PO DAILY [facility] Medical Necessity - Tobacco Use Smoking Status: Never smoker Tobacco Use: Non-smoker Assessment/Plan 1. S/P left direct anterior total hip arthroplasty POD #1 2. Continue Pain Medications: Tylenol, meloxicam, tramadol 3. DVT Prophylaxis: Take 81 mg aspirin twice daily for 4 weeks postoperatively for DVT prophylaxis 4. PT/OT: Weightbearing as tolerated 5. H & H: 11.9/36.2, asymptomatic 6. Reactive leukocytosis: Currently 12.7, afebrile. Patient did receive Decadron intraoperatively 8. Encouraged Incentive Spirometry 9. Disposition: Orthopedically stable, plan will be for discharge home this afternoon as long as pain is well controlled and patient tolerates physical therapy. Patient does have history of congestion in the past. She states she gets this with weather changes and with any stress. Recommended she can use plain pseudoephedrine at home. I do not want her to get any Tylenol cold and sinus or Advil Cold and Sinus. If she does not see any significant improvements or she has having any worsening symptoms she should follow-up with her primary care physician. Otherwise patient will continue with the medications postoperatively for pain control as well as DVT prophylaxis. Physical therapy has been established. She will follow-up per postop instructions. Prescriptions will be E scribed to [facility] in [place]. I have reviewed the [place] Automated Rx Reporting System (OARRS) report for this patient for refill pattern and other prescriber involvement as part of the appropriate surveillance for the provision of acute and chronic controlled medications. The report was requested and reviewed on the date of this entry and was considered in the prescribing process.
--- NOTE | 2019-08-17 09:01 | PCM.DC.THR ---
Discharge Diet: No Restrictions Discharge Activity: May Not Drive - while taking narcotic pain medications. May shower in (days): 1 - Turn dressings away from water, dressings must be intact to skin Ice area for (Minutes): 20 - Every 1-2 hours while awake Weight Bearing Status: Weight bearing as tolerated Elevate: Operative Extremity Additional Activity Instructions:: Wear elastic stockings for 2 weeks. DO NOT use alcohol with narcotic pain medication. DO NOT make important decisions while taking narcotic medication. If you have problems with taking your medication (rash, itching, nausea, etc.) call the office at once. Call your doctor if your incision/area has: Increased Pain/ Swelling, Increased Redness, Foul Smelling Discharge Call your doctor if you observe: Fever of 101 or Higher Remove Dressing in (days):: 4 - Remove dressing on August 21, 2019 Additional Instructions: Follow orthopedic postop instructions Okay to use pseudoephedrine at home. If she has any continued symptoms or problems she is to schedule appointment with primary care physician. Allergies/Adverse Reactions: Allergies erythromycin base Allergy (Verified 08/16/19 11:36) Rash latex Allergy (Verified 08/16/19 11:36) Rash nickel Allergy (Verified 08/16/19 11:36) Rash nitrofurantoin [From Macrobid] Allergy (Verified 08/16/19 11:36) Rash oxytetracycline [From Terramycin] Allergy (Verified 08/16/19 11:36) Rash shellfish derived Allergy (Verified 08/16/19 11:36) Other Sulfa (Sulfonamide Antibiotics) Allergy (Verified 08/16/19 11:36) Other Medications to take at Discharge Acyclovir [Zovirax] 400 mg PO DAILY 07/24/19 Albuterol Inhaler [Ventolin Hfa] 2 puff INHALATION Q6H PRN PRN 07/24/19 Biotin 5,000 mcg PO DAILY 07/24/19 Calcium Carb/D3/Magnesium/Zinc [Zyuhzfx-Blq-Ypwc-Vit D Tablet] 1 ea PO DAILY 07/24/19 Citalopram [Celexa] 20 mg PO DAILY 07/24/19 Cyanocobalamin [Vitamin B12] 500 mcg PO DAILY@0800 07/24/19 Triamterene/Hydrochlorothiazid [Triamterene-Hctz 37.5-25 mg Tb] 1 ea PO DAILY 07/24/19 Acetaminophen [Tylenol] 1,000 mg PO Q8 #100 tab 08/17/19 Aspirin [Aspirin, Baby] 81 mg PO BIDCM #60 tab 08/17/19 Famotidine [Pepcid] 20 mg PO DAILY #30 tab 08/17/19 Meloxicam [Mobic] 7.5 mg PO BID tablet 08/17/19 Senna/Docusate Sodium [Senokot-S] 2 tab PO BID #10 tab 08/17/19 traMADol [Ultram] 50 - 100 mg PO Q6H PRN PRN 7 Days #56 tablet 08/17/19 The following prescriptions were given: Aspirin [Aspirin, Baby] 81 mg PO BIDCM #60 tab Transmission Status: Pending to [facility]/pharmacy #[id number] Famotidine [Pepcid] 20 mg PO DAILY #30 tab Transmission Status: Pending to [id number] Senna/Docusate Sodium [Senokot-S] 2 tab PO BID #10 tab Transmission Status: Pending to [id number] Acetaminophen [Tylenol] 1,000 mg PO Q8 #100 tab Transmission Status: Pending to [id number] traMADol [Ultram] 50 - 100 mg PO Q6H PRN PRN 7 Days #56 tablet PRN Reason: Pain Score 4-10/10 Transmission Status: Received by [id number] Primary Care Physician: Gaby Gilliland DO [Primary Care Provider] - Test Results: Test results from this visit will be discussed in further detail at your follow-up appointment, if applicable. Please Follow Up With: Starr Vázquez Physical Therapy When: 08/21/19 @ 9:00 am with Yessenia Please Follow Up With: Oliver Loco PA-C When: 08/30/19 @ 10:00 am
[2019-08-17 09:20] VITALS: BP 143/63; PULSE 83; RESP 18; TEMP 36.8; O2SAT 97
[2019-08-17] MEDS: Citalopram 20 MG Tablet PO (09:24)
[2019-08-17] MEDS: Senna/Docusate Sodium 1 Tablet 2 TABLET PO (09:24)
[2019-08-17] MEDS: Famotidine 20 MG Tablet PO (09:25)
[2019-08-17] MEDS: Triamterene 37.5MG/Hctz 25MG Capsule 1 CAP PO (09:25)
[2019-08-17] MEDS: Aspirin 81 MG TAB.CHEW PO (09:25)
[2019-08-17] MEDS: Acyclovir 200 MG Capsule 400 MG PO (09:25)
--- NOTE | 2019-08-17 11:45 | CASEMGMT ---
RN CM Face to Face with patient for initial transition planning/care coordination assessment. RN CM introduced self and role at [facility]. Patient lying in bed, alert and oriented, significant other at bedside. Patient willing to participate in assessment and is able to answer all questions appropriately. Care providers, pharmacy, and demographics verified. Patient wishes to discharge to daughter home, and is setup with outpatient therapy at [facility]. Patient states she has no further needs or concerns at this time. CM to follow for discharge planning needs that may arise. PCP: Darshana Specialists: vanessa Zhang [facility] Insurance: [employer], MMO Prescription Benefit: yes Living Will/HPOA: yes, significant other Keyru Domingo LNOK: significant other, daughter Living Arrangements: Patient will be staying with daughter at discharge in 1 story home. Patient independent at home prior to surgery Transportation: daughter DME/HHC: Patient has walker, cane, and raised toilet. Patient is setup with [facility] for outpatient therapy on Wednesday. Disposition Plan: Patient to discharge home with outpatient therapy, family support, and follow-up plans. Vanesa ARREDONDO, RN, CM
[2019-08-17 12:43] VITALS: BP 149/60; PULSE 102; RESP 18; TEMP 37; O2SAT 97
== END 2019-08-17 12:24 | disposition home or self-care (01) ==
LOC: MS3 08-17 09:32 → ACINP 08-17 09:49 → MS3 08-17 09:49
PROVIDERS: Admitting Provider Specialist; Family Provider Internal Medicine; PCP Internal Medicine; Referring Provider Specialist; Visit Provider Specialist
PROC: 8E0Y0CZ Robotic Assisted Procedure of Lower Extremity, Open Approach (ICD-10-PCS; CPT 27130; principal; 2019-08-16 12:45)
DX: M16.12 Unilateral primary osteoarthritis, left hip (principal); F41.9 Anxiety disorder, unspecified; E07.9 Disorder of thyroid, unspecified; J45.909 Unspecified asthma, uncomplicated; I10 Essential (primary) hypertension; Z79.899 Other long term (current) drug therapy; M81.0 Age-related osteoporosis without current pathological fracture
CPT/HCPCS: 01214; 27130; S2900; 36415; 73501; 73502; 76000; 80048; 82962; 85027; 87081; 96361; 96365; 96366; 96375; 96376; 97110; 97161; 97166; 97530; 99218; 99251; C1776; J7120; G0378; G0379; G0463

== ENCOUNTER → 2019-11-15 10:57 | Outpatient (CLI) | payer MEDICARE, OTHER, SELFPAY ==
[2019-08-16 18:01] VITALS: BMI 28.8
--- NOTE | 2019-11-15 10:59 | BI_ITS ---
MAMMOGRAPHY - BILATERAL SCREENING REASON FOR EXAM: Female, 69 years old. Routine annual screening examination. PERTINENT HISTORY: Non-contributory. Remote right excisional breast biopsy. TECHNIQUE: Digital bilateral breast drake (3D mammographic acquisition) in the CC and MLO projections. 2-D mediolateral oblique (MLO) and craniocaudad (CC) views of both breasts were obtained. CAD: Full Field Digital Mammography with Computer Added Detection was performed. COMPARISON: Comparison is made with prior examination dated November 09, 2018 and April 06, 2019. FINDINGS: Breast Composition: The breasts are heterogeneously dense, which may obscure small masses. There are no dominant masses or suspicious calcifications. Stable benign-appearing bilateral axillary No other significant abnormalities are identified. There has been no significant change since the prior study. BI/SCREEN MAMM (CAD) W/DRAKE BILAT IMPRESSION: Stable bilateral screening mammogram. Yearly follow-up mammogram recommended. (A) ASSESSMENT CATEGORY: BIRADS Category 2: Benign. A letter regarding these results will be sent to the patient by the facility within 30 days. Approximately 10% of breast cancers are not detected by mammography. A normal mammogram should not delay biopsy of a clinically suspicious abnormality. [id number] Electronically Signed: Nik Wiggins, at 13:32 EDT , Service support ,
== END ==
PROVIDERS: PCP Internal Medicine; Referring Provider Obstetrics & Gynecology; Visit Provider Obstetrics & Gynecology
DX: Z12.31 Encounter for screening mammogram for malignant neoplasm of breast (principal)
CPT/HCPCS: 77063; 77067

== ENCOUNTER → 2019-12-07 07:58 | Outpatient (CLI) | payer MEDICARE, OTHER, SELFPAY ==
[2019-08-16 18:01] VITALS: BMI 28.8
--- NOTE | 2019-12-07 08:01 | US_ITS ---
STUDY: THYROID ULTRASOUND REASON FOR EXAM: Female, 69 years old. Goiter TECHNIQUE: Ultrasound evaluation of the thyroid was performed with real-time and static momin-scale imaging. COMPARISON: None. FINDINGS: RIGHT LOBE: The right lobe of the thyroid gland measures 4.9 cm x 1.7 cm x 1.6 cm. There is a heterogeneous echotexture. Multiple solid hypoechoic nodules are seen throughout the right lobe. The largest is in the mid lobe measuring 2.5 cm x 1.6 cm x 1.2 cm. LEFT LOBE: The left lobe of the thyroid gland measures 4.1 cm x 1.3 cm x 1.3 cm. There is a heterogeneous echotexture. Multiple small solid nodules are seen. The largest measures 5 mm x 4 mm x 4 mm. This is in the upper pole. ISTHMUS: The isthmus measures 3.0 mm. 2 hypoechoic solid nodules are seen within the isthmus. There is a 4 mm x 4 mm x 4 mm hypoechoic nodule in the right side of the isthmus as well as a 3 mm x 3 mm x 2 mm hypoechoic solid nodule in the left isthmus. There is visualization of the right parathyroid gland measuring 1.4 cm x 1.3 cm x 0.7 cm. The regional lymph nodes are normal. US/Thyroid IMPRESSION: Multiple bilateral thyroid nodules as described. Dominant 2.5 cm x 1.6 cm x 1.2 cm solid hypoechoic nodule in the right lobe of the thyroid. Biopsy recommended. Heterogeneous echotexture. Electronically Signed: Nik Wiggins, at 13:17 EDT , Service support ,
[2019-12-07 09:41] LABS: Vitamin D,25 Hydroxy 47.5 ng/mL
[2019-12-07 09:43] LABS: Anion Gap 6 (5-15); BUN 20 mg/dL (7-18); BUN/Creat Ratio 19.4 RATIO (10-20); Calcium,Total 8.9 mg/dL (8.5-10.1); Chloride 103 mmol/L (98-107); Creatinine, Serum 1.03 mg/dL (0.55-1.02); EST Glomerular Filtration Rate 56 mL/min (>60); Est Glom Filt Rate - Afr Amer 68 mL/min (>60); Free T3 2.6 pg/mL (2.18-3.98); Glucose 82 mg/dL (74-106); Potassium 3.9 mmol/L (3.5-5.1); Sodium Level 140 mmol/L (136-145); Thyroid Stim Hormone (TSH) 1.34 uIU/mL (0.358-3.74)
== END ==
PROVIDERS: PCP Internal Medicine
DX: E04.2 Nontoxic multinodular goiter (principal); M85.80 Other specified disorders of bone density and structure, unspecified site
CPT/HCPCS: 36415; 76536; 80048; 82306; 84439; 84443; 84481

== ENCOUNTER → 2020-01-08 09:30 | Outpatient (CLI) | payer MEDICARE, OTHER, SELFPAY ==
[2019-08-16 18:01] VITALS: BMI 28.8
== END ==
PROVIDERS: PCP Internal Medicine; Referring Provider Specialist; Visit Provider Specialist
DX: Z11.59 Encounter for screening for other viral diseases (principal)
CPT/HCPCS: 87635; G2023; U0003

== ENCOUNTER → 2020-01-12 | Outpatient (CLI) | payer MEDICARE, OTHER, SELFPAY ==
[2019-08-16 18:01] VITALS: BMI 28.8
--- NOTE | 2020-01-12 | CYST_PTH ---
PATIENT: JASON LOJA LOC: [facility] U#:[id number] AGE/SX: 69/F ROOM: RE01/12/[address]: Dr. Brock Zhang MD : 1950 BED: DIS: 01/12/2020 SPEC #: [id number] RECD: 01/12/20 15:04 STATUS: EDDIE SANJU #: [id number] NOAM: 01/12/20 00:[address]: Brock Zhang DEPT: SURGICAL PATHOLOGY RECD BY: Brandon Fraser ENTERED: 01/15/20 07:59 SP TYPE: Cyst OTHR DR: Dr. Gaby Gilliland, [facility] Tissues: CYST Procedures: Surgery Specimen Level III HEADER OPERATION: Left wrist volar ganglion cyst removal PRE-OP DIAGNOSIS: Left wrist ganglion cyst TISSUE SUBMITTED: Cyst left wrist MICROSCOPIC DIAGNOSIS Cyst left wrist, biopsy: Consistent with ganglion cyst. JAYME:shiraz 01/16/20 MICROSCOPIC DESCRIPTION Slides are reviewed. GROSS DESCRIPTION Received is one container labeled with the patient's name and not further designated. The specimen consists of multiple irregular fragments of light leiva-yellow soft tissue that in aggregate measure 2.2 x 1.5 x 0.3 cm. The specimen is totally submitted in one cassette. / AM:shiraz 01/15/20 TC:5 CPT: 67509
== END | disposition home or self-care (01) ==
LOC: LABSPEC 15:17
PROVIDERS: PCP Internal Medicine; Referring Provider Specialist; Visit Provider Specialist
DX: M67.432 Ganglion, left wrist (principal)
CPT/HCPCS: 88304

== ENCOUNTER → 2020-07-20 07:15 | Outpatient (CLI) | payer MEDICARE, OTHER, SELFPAY ==
[2019-08-16 18:01] VITALS: BMI 28.8
[2020-07-20 09:25] LABS: Anion Gap 5 (5-15); BUN 26 mg/dL (7-18); BUN/Creat Ratio 27.1 RATIO (10-20); Chloride 105 mmol/L (98-107); Creatinine, Serum 0.96 mg/dL (0.55-1.02); EST Glomerular Filtration Rate 61 mL/min (>60); Est Glom Filt Rate - Afr Amer 74 mL/min (>60); Free T3 2.5 pg/mL (2.18-3.98); Glucose 95 mg/dL (74-106); Potassium 3.7 mmol/L (3.5-5.1); Sodium Level 140 mmol/L (136-145); T4 Free Direct 0.81 ng/dL (0.76-1.46); Thyroid Stim Hormone (TSH) 0.77 uIU/mL (0.358-3.74)
[2020-07-20 10:37] LABS: Vitamin D,25 Hydroxy 32.2 ng/mL
[2020-07-21 16:07] LABS: SJOGREN'S Anti-SS-A test < 0.2 AI (0.0-0.9)
[2020-07-22 02:03] LABS: SJOGREN'S Anti-SS-B test < 0.2 AI (0.0-0.9)
[2020-07-22 11:03] LABS: Ferritin 40 ng/mL (8-252)
[2020-07-23 12:30] LABS: DHEA Sulfate 30.2 ug/dL (20.4-186.6)
== END ==
PROVIDERS: PCP Internal Medicine; Referring Provider Internal Medicine; Visit Provider Internal Medicine
DX: L65.9 Nonscarring hair loss, unspecified (principal); R68.2 Dry mouth, unspecified; R76.8 Other specified abnormal immunological findings in serum; M85.80 Other specified disorders of bone density and structure, unspecified site; E04.2 Nontoxic multinodular goiter
CPT/HCPCS: 36415; 80048; 82306; 82627; 82728; 84439; 84443; 84481; 86235; 82626

== ENCOUNTER 2020-08-15 10:02 | Outpatient (RCR) | payer MEDICARE, OTHER, SELFPAY ==
[2019-08-16 18:01] VITALS: BMI 28.8
== END 2020-08-15 23:59 ==
LOC: IMMUN 10:02
PROVIDERS: PCP Internal Medicine; Visit Provider Family Medicine
DX: Z23 Encounter for immunization (principal)
CPT/HCPCS: 0011A; 0012A

== ENCOUNTER → 2020-08-22 14:40 | Outpatient (CLI) | payer MEDICARE, OTHER, SELFPAY ==
[2019-08-16 18:01] VITALS: BMI 28.8
--- NOTE | 2020-08-22 14:50 | US_ITS ---
STUDY: THYROID ULTRASOUND REASON FOR EXAM: Female, 70 years old. NODULE TECHNIQUE: Ultrasound evaluation of the thyroid was performed with real-time and static momin-scale imaging. COMPARISON: 12/07/2019 FINDINGS: RIGHT LOBE: The right lobe of the thyroid gland measures 4.0 x 1.8 x 1.9 cm. There is a heterogeneous echotexture. Nodule 1: No change in the 24 x 12 x 15 mm solid hypoechoic wider than tall ill-defined marginated nodule with no echogenic foci (TR 4) in the mid right lobe for which ultrasound-guided biopsy is recommended if never performed. Nodule 2: No change in the 6 x 6 x 5 mm solid hypoechoic wider than tall ill-defined marginated nodule with no echogenic foci (TR 4) in the medial right lobe consistent with an adenoma. Nodule 3: No change in the 8 x 4 x 8 mm solid hypoechoic wider than tall ill-defined marginated nodule with no echogenic foci (TR 4) in the anterior right lobe consistent with an adenoma. LEFT LOBE: The left lobe of the thyroid gland measures 3.9 x 1.4 x 1.2 cm. There is a heterogeneous echotexture. Nodule 4: No change in the 5 x 3 x 3 mm solid hypoechoic wider than tall ill-defined marginated nodule with no echogenic foci (TR 4) anterior left lobe consistent with an adenoma. ISTHMUS: The isthmus measures 3 mm thick. . The regional lymph nodes are normal. US/Thyroid IMPRESSION: No change in multinodular thyroid gland. Biopsy of the dominant nodule right lobe is recommended if never performed. Follow-up ultrasound is recommended in one year. Electronically Signed: Cyrus Delgado MD at 16:12 EST Tel , Service support ,
--- NOTE | 2020-08-22 14:57 | BD_ITS ---
STUDY: DUAL ENERGY X-RAY ABSORPTIOMETRY / DXA REASON FOR EXAM: Female, 70 years old. M85.89. Postmenopausal. Loss of height. Prior left total hip replacement. TECHNIQUE: Bone Mineral Density (BMD) measurements of lumbar spine and right hip were obtained. COMPARISON: Comparison is made with prior study dated 08/17/2018. FINDINGS: Lumbar Spine (L1-L4): g/cm2 (1.010) / T-score (-1.3) / Z-score (0.4) Findings are suggestive of with a fracture risk. Right Femur Total: g/cm2 (0.684) / T-score (-2.6) / Z-score (-1.1) Right Femoral Neck: g/cm2 (0.593) / T-score (-3.2) / Z-score (-1.5) The T-Scores on the most recent prior examination were: Lumbar Spine (L1-L4): There has been improvement of bone density since the previous examination. Right Femur Total: which represents no significant change. . BD/Dexa Bone Density Study IMPRESSION: The patient is considered osteoporotic as outlined below according to World Marg[employer] Organization (WHO) criteria with a high fracture risk. There has been improvement of bone density since the previous examination. Reference Information: The T-score is the number of standard deviations above or below the standard which is normal for young adults at their peak bone mineral density. The World Health Organization (WHO) interprets the T-scores as follows: Above -1 Normal bone density Between -1 and -2.5 Osteopenia Equal to / or below -2.5 Osteoporosis As a practical clinical guideline, osteopenia may be graded as follows: Mild -1 through -1.5 Moderate -1.6 through -2.0 Severe -2.1 through -2.4 The Z-score is the number of standard deviations above or below age-matched controls. A Z-score of less than -1.5 would be considered abnormal. References: 1. NIH Osteoporosis and Related Bone Diseases www osteo.org 2. International Society for Clinical Densitometry www iscd.org 3. National Osteoporosis Foundation www nof.org Electronically Signed: Nik Wiggins MD at 15:44 EST , Service support ,
== END ==
PROVIDERS: PCP Internal Medicine
DX: M85.89 Other specified disorders of bone density and structure, multiple sites (principal); M81.0 Age-related osteoporosis without current pathological fracture; E04.2 Nontoxic multinodular goiter
CPT/HCPCS: 76536; 77080

== ENCOUNTER → 2020-11-20 07:29 | Outpatient (CLI) | payer MEDICARE, OTHER, SELFPAY ==
[2019-08-16 18:01] VITALS: BMI 28.8
--- NOTE | 2020-11-20 07:32 | BI_ITS ---
MAMMOGRAPHY - BILATERAL SCREENING REASON FOR EXAM: Female, 70 years old. Routine annual screening examination. PERTINENT HISTORY: Non-contributory. Remote right excisional breast biopsy. TECHNIQUE: Digital bilateral breast drake (3D mammographic acquisition) in the CC and MLO projections. 2-D mediolateral oblique (MLO) and craniocaudad (CC) views of both breasts were obtained. CAD: Full Field Digital Mammography with Computer Added Detection was performed. COMPARISON: Comparison is made with prior study dated 11/15/2019 and 04/06/2019. FINDINGS: Breast Composition: The breasts are heterogeneously dense, which may obscure small masses. There are no dominant masses or suspicious calcifications. Stable microcalcifications in the upper lateral aspect of the right breast. No other significant abnormalities are identified. There has been no significant change since the prior study. BI/SCRN MAMM (CAD)W/DRAKE BILAT IMPRESSION: Stable bilateral screening mammogram. Yearly follow-up mammogram recommended. (A) ASSESSMENT CATEGORY: BIRADS Category 2: Benign. A letter regarding these results will be sent to the patient by the facility within 30 days. Approximately 10% of breast cancers are not detected by mammography. A normal mammogram should not delay biopsy of a clinically suspicious abnormality. [id number] Electronically Signed: Nik Wiggins MD at 8:33 EDT , Service support ,
--- NOTE | 2020-11-20 07:55 | CDU_ITS ---
Reason For Study: Carotid occlusion Rt. Velocities/BP Lt. Velocities/BP Prox CCA 80.5/12.4 cm/sec. Prox CCA 64.5/13.5 cm/sec. Mid CCA 67.3/16.8 cm/sec. Mid CCA 73/18.2 cm/sec. Dist CCA 71.7/12.4 cm/sec. Dist CCA 64.5/12.6 cm/sec. Prox ICA 57.2/11.5 cm/sec. Prox ICA 76.1/17.9 cm/sec. Mid ICA 82.7/20.6 cm/sec. Mid ICA 82.8/24.5. cm/sec. Dist ICA 80.9/24.3 cm/sec. Dist ICA 103.6/30 cm/sec. Rt. ICA/CCA = 1.15. Lt. ICA/CCA = 1.42. Prox ECA 122.9/11.5 cm/sec. Prox ECA 113.5/8 cm/sec. Rt. Vert. 41.9/10.7 cm/sec. Lt. Vert. 45.4/11.3 cm/sec. Right Extracranial There is homogeneous, smooth atherosclerotic plaque noted in the right common carotid artery. There is homogeneous, smooth atherosclerotic plaque noted in the right internal carotid artery. There is intimal thickening but no significant atherosclerotic plaque noted in the right external carotid artery. Antegrade flow is noted in the right vertebral artery. Left Extracranial There is intimal thickening but no significant atherosclerotic plaque noted in the left common carotid artery. There is heterogeneous, irregular atherosclerotic plaque noted in the left internal carotid artery. There is intimal thickening but no significant atherosclerotic plaque noted in the left external carotid artery. Antegrade flow is noted in the left vertebral artery. VL/Carotid Duplex Ultrasound Interpretation Summary Mild (<50%) stenosis right extracranial internal carotid. Mild (<50%) stenosis left extracranial internal carotid. Flow within the vertebral arteries is antegrade bilaterally. Ordering Physician: Gaby Gilliland Referring Physician: Gaby Gilliland Performed By: Vanesa Huynh RVT and Student
== END ==
PROVIDERS: PCP Internal Medicine; Referring Provider Internal Medicine; Visit Provider Internal Medicine
DX: I65.23 Occlusion and stenosis of bilateral carotid arteries (principal); Z12.31 Encounter for screening mammogram for malignant neoplasm of breast
CPT/HCPCS: 77063; 77067; 93880

== ENCOUNTER → 2020-12-10 13:11 | Outpatient (CLI) | payer MEDICARE, OTHER, SELFPAY ==
[2020-11-29 10:29] VITALS: BMI 28.8
[2020-12-10 13:24] VITALS: BP 149/71; PULSE 72; RESP 16; TEMP 36.2; O2SAT 95; BMI 30.3
[2020-12-10] MEDS: DENOSUMAB 60 MG/ML SC (13:35)
== END ==
PROVIDERS: PCP Internal Medicine; Referring Provider Internal Medicine Endocrinology, Diabetes & Metabolism; Visit Provider Internal Medicine Endocrinology, Diabetes & Metabolism
DX: M81.0 Age-related osteoporosis without current pathological fracture (principal)
CPT/HCPCS: 96372; J0897

== ENCOUNTER → 2020-12-19 12:07 | Outpatient (CLI) | payer MEDICARE, OTHER, SELFPAY ==
[2020-12-19 07:08] VITALS: BMI 29.5
--- NOTE | 2020-12-19 07:30 | ASPS_PTH ---
PATIENT: JASON LOJA LOC: [facility] U#:[id number] AGE/SX: 74/F ROOM: RE12/19/[address]: Dr. Tacos Cervantes MD : 1950 BED: DIS: SPEC #: [id number] RECD: 12/19/20 12:01 STATUS: EDDIE SANJU #: [id number] NOAM: 12/19/20 07:[address]: Tacos Cervantes DEPT: CYTOLOGY RECD BY: Mahsa Kolb ENTERED: 12/19/20 12:39 SP TYPE: ASPIRATION OTHR DR: Dr. Gaby Gilliland, Tissues: Thyroid gland, NOS Procedures: Special Stain Group II Cytology Other HEADER OPERATION: Right thyroid fine needle aspiration PRE-OP DIAGNOSIS: Multiple thyroid nodules TISSUE SUBMITTED: Right mid thyroid slides x10 DIAGNOSIS CYTOLOGY Right mid thyroid nodule, FNA (smears): Consistent with benign follicular/colloid nodule. Adequate for evaluation. See comment. SJ:shiraz 12/20/2020 COMMENT Correlation with clinical, radiologic findings and appropriate follow up are necessary. Please make reference to previous specimen ([id number]) fine needle aspiration, right thyroid nodule with diagnosis of adequate for evaluation and negative, consistent with benign follicular nodule. CYTOLOGY STUDY Slides are reviewed. CYTOLOGY GROSS Received are 12 smears labeled with the patient's name and designated per the requisition as right thyroid. Submitted for staining. / shiraz 12/19/2020 TC:5 CPT: 81586
== END ==
PROVIDERS: PCP Internal Medicine; Referring Provider Surgery; Visit Provider Surgery
DX: E04.1 Nontoxic single thyroid nodule (principal)
CPT/HCPCS: 88161; 88313

== ENCOUNTER → 2021-03-01 07:53 | Outpatient (CLI) | payer MEDICARE, OTHER, SELFPAY ==
--- NOTE | 2021-03-01 07:45 | CT_ITS ---
ACR Level 3 findings have been noted. An addendum which confirms receipt of the report will follow. STUDY: CT CHEST WITHOUT CONTRAST REASON FOR EXAM: Female, 70 years old. ABN CXR, LUNG NODULE RT SIDE RADIATION DOSAGE (If Supplied By Facility): CTDIvol = ( 8.67 ) mGy, DLP = ( 309.88 ) mGycm TECHNIQUE: Transaxial imaging was performed without the administration of intravenous contrast material. Multiplanar coronal and sagittal images were reformatted. Individualized dose optimization techniques were used for this CT. COMPARISON: None. FINDINGS: The lungs are normal. There is no demonstrated pleural abnormality. Normal heart and pericardium. There are calcifications of the coronary arteries. Normal mediastinum. Normal hilar regions. Normal unenhanced pulmonary arteries. Normal aorta arch and descending thoracic aorta. Mild aortic arch calcification. 1.5 cm hypoattenuating right thyroid nodule. There are multi-level mild degenerative changes of the thoracic spine. There is no demonstrated abnormality of the visualized upper abdomen. CT/Chest without Contrast IMPRESSION: 1.5 cm right thyroid nodule. Follow-up with ultrasound to evaluate malignant potential. No finding of pulmonary nodule. Pending Final Proof Editing
== END ==
PROVIDERS: PCP Internal Medicine; Referring Provider Internal Medicine; Visit Provider Internal Medicine
DX: R91.1 Solitary pulmonary nodule (principal); E04.1 Nontoxic single thyroid nodule
CPT/HCPCS: 71250

== ENCOUNTER → 2021-06-02 15:48 | Outpatient (CLI) | payer MEDICARE, OTHER, SELFPAY ==
[2021-06-02 16:48] LABS: Absolute Lymphocyte Count 2.23 X10^3/uL (0.83-4.51); Absolute Neutrophil Count 2.6 X10^3/uL (2.0-7.7); Basophil# 0.08 X10^3/uL; Basophil% 1.3 % (0-1); Eosinophil# 0.39 X10^3/uL; Eosinophils% 6.6 % (0-5); Hematocrit 43.6 % (37-47); Hemoglobin 14.7 g/dL (12.0-15.0); Lymphocyte # 2.23 X10^3/ul (0.83-4.51); Lymphocyte % 37.5 % (19-41); Mean Corp Hgb Conc 33.7 g/dL (32-36); Mean Corpuscular Hgb 30.6 pg (27.0-32.0); Mean Corpuscular Volume 90.8 fL (81-99); Mean Platelet Vol. 8.9 fl (6.2-12.0); Monocyte% 10.1 % (0-10); NRBC Flagged by Analyzer 0 % (0-5); Neutrophil # 2.63 X10^3/uL (2.7-7.7); Neutrophil % 44.2 % (47-70); Platelet Count 391 K/mm3 (150-450); RBC Distribution Width CV 12.2 % (11.6-14.6); RBC Distribution Width SD 40.3 fl (35.1-43.9)
[2021-06-02 17:08] LABS: Vitamin B12 1094 pg/mL (211-911); Vitamin D,25 Hydroxy 22.1 ng/mL
[2021-06-02 17:13] LABS: AST(SGOT) 17 U/L (15-37); Alanine Aminotransfer ALT/SGPT 36 U/L (13-56); Albumin, Serum 3.8 g/dL (3.2-5.0); Alkaline Phosphatase 68 U/L (45-117); Anion Gap 5 (5-15); BUN 31 mg/dL (7-18); BUN/Creat Ratio 34.3 RATIO (10-20); Calcium,Total 9.6 mg/dL (8.5-10.1); Chloride 105 mmol/L (98-107); Cholesterol 284 mg/dL (200); EST Glomerular Filtration Rate 65 mL/min (>60); Est Glom Filt Rate - Afr Amer 79 mL/min (>60); Ferritin 47 ng/mL (8-252); Globulin 3.7 g/dL (2.2-4.2); Glucose 113 mg/dL (74-106); High Density Lipoprotein 59 mg/dL; Potassium 3.5 mmol/L (3.5-5.1); Protein, Total 7.5 g/dL (6.4-8.2); Sodium Level 139 mmol/L (136-145); T4 Free Direct 0.81 ng/dL (0.76-1.46); Thyroid Stim Hormone (TSH) 0.97 uIU/mL (0.358-3.74); Triglycerides 185 mg/dL; Very Low Density Lipoprotein 37 mg/dL (5-40)
[2021-06-04 09:43] LABS: Thyroid Peroxidase AB < 8 IU/mL (0-34)
== END ==
PROVIDERS: PCP Internal Medicine; Visit Provider Internal Medicine Endocrinology, Diabetes & Metabolism
DX: E55.9 Vitamin D deficiency, unspecified (principal); L43.9 Lichen planus, unspecified; E04.1 Nontoxic single thyroid nodule; M81.0 Age-related osteoporosis without current pathological fracture; I10 Essential (primary) hypertension; E61.1 Iron deficiency; G56.00 Carpal tunnel syndrome, unspecified upper limb; R20.2 Paresthesia of skin
CPT/HCPCS: 36415; 80053; 80061; 82306; 82607; 82728; 84439; 84443; 85025; 86376

== ENCOUNTER → 2021-06-11 08:04 | Outpatient (CLI) | payer MEDICARE, OTHER, SELFPAY ==
[2020-12-10 13:24] VITALS: BMI 30.3
[2021-06-11 08:17] VITALS: BP 145/73; PULSE 70; RESP 16; TEMP 35.7; O2SAT 96
== END ==
PROVIDERS: PCP Internal Medicine; Referring Provider Internal Medicine Endocrinology, Diabetes & Metabolism; Visit Provider Internal Medicine Endocrinology, Diabetes & Metabolism
DX: M81.0 Age-related osteoporosis without current pathological fracture (principal)
CPT/HCPCS: 96372

== ENCOUNTER → 2022-01-02 | Outpatient (CLI) | payer MEDICARE, OTHER, SELFPAY ==
[2022-01-02 15:05] VITALS: BP 135/71; PULSE 85; RESP 14; TEMP 36.6; O2SAT 98; BMI 28.3
[2022-01-02] MEDS: DENOSUMAB 60 MG/ML SC (15:08)
== END | disposition home or self-care (01) ==
LOC: MEDOUTP 14:56
PROVIDERS: PCP Internal Medicine; Referring Provider Internal Medicine Endocrinology, Diabetes & Metabolism; Visit Provider Internal Medicine Endocrinology, Diabetes & Metabolism
DX: M81.0 Age-related osteoporosis without current pathological fracture (principal)
CPT/HCPCS: 96372; J0897

== ENCOUNTER → 2022-04-29 | Outpatient (CLI) | payer MEDICARE, OTHER, SELFPAY ==
--- NOTE | 2022-04-29 14:47 | BI_ITS ---
MAMMOGRAPHY - BILATERAL SCREENING REASON FOR EXAM: Female, 71 years old. Routine annual screening examination. PERTINENT HISTORY: Non-contributory. Remote right excisional breast biopsy. TECHNIQUE: Digital bilateral breast drake (3D mammographic acquisition) in the CC and MLO projections. 2-D mediolateral oblique (MLO) and craniocaudad (CC) views of both breasts were obtained. CAD: Full Field Digital Mammography with Computer Added Detection was performed. COMPARISON: Comparison is made with prior examination dated 11/20/2020 and 11/15/2019. FINDINGS: Breast Composition: The breasts are heterogeneously dense, which may obscure small masses. There are no dominant masses or suspicious calcifications. Stable benign appearing bilateral axillary lymph. No other significant abnormalities are identified. There has been no significant change since the prior study. BI/SCRN MAMM (CAD)W/DRAKE BILAT IMPRESSION: Stable bilateral screening mammogram. Yearly follow-up mammogram recommended. (A) ASSESSMENT CATEGORY: BIRADS Category 2: Benign. A letter regarding these results will be sent to the patient by the facility within 30 days. Approximately 10% of breast cancers are not detected by mammography. A normal mammogram should not delay biopsy of a clinically suspicious abnormality. [id number] Electronically Signed: Nik Wiggins MD at 15:39 EST ,
== END | disposition home or self-care (01) ==
LOC: OPBI 14:46
PROVIDERS: PCP Internal Medicine; Referring Provider Student in an Organized Health Care Education/Training Program; Visit Provider Student in an Organized Health Care Education/Training Program
DX: Z12.31 Encounter for screening mammogram for malignant neoplasm of breast (principal); Z92.89 Personal history of other medical treatment
CPT/HCPCS: 77063; 77067

== ENCOUNTER → 2022-07-20 | Outpatient (CLI) | payer MEDICARE, OTHER, SELFPAY ==
--- NOTE | 2022-07-20 15:29 | CT_ITS ---
STUDY: CT MAXILLOFACIAL SINUSES REASON FOR EXAM: Female, 71 years old. CHRONIC SINUSITIS RADIATION DOSAGE (If Supplied By Facility): CTDIvol = ( 33.06 ) mGy, DLP = ( 759.47 ) mGycm TECHNIQUE: The patient was scanned in a multi detector CT scanner. High resolution axial imaging was performed without the administration of intravenous contrast material. Sagittal and coronal images were reconstructed. Individualized dose optimization techniques were used for this CT. COMPARISON: None. FINDINGS: FRONTAL SINUSES: Partial opacification of the right frontal sinus. ETHMOIDAL SINUSES: Partial opacification of the ethmoid sinuses worse on the right side. MAXILLARY SINUSES: Opacification of the right maxillary sinus. SPHENOIDAL SINUSES: Small air-fluid level in the left sphenoid sinus. There is obliteration of the right ostiomeatal complex due to mucosal hypertrophy in the right nasal fossa. Normal bilateral middle turbinates. Normal bilateral inferior turbinates. Normal midline nasal septum. Mucosal hypertrophy of the right nasal fossa. The visualized osseous structures are normal. The visualized bilateral orbital contents are normal. CT/Sinus/Facial Bone IMPRESSION: PERDOMO sinusitis. Electronically Signed: Nik Wiggins MD at 15:51 EST ,
== END | disposition home or self-care (01) ==
LOC: CT 15:27
PROVIDERS: PCP Internal Medicine; Visit Provider Otolaryngology
DX: J32.4 Chronic pansinusitis (principal)
CPT/HCPCS: 70486

== ENCOUNTER → 2022-07-27 | Outpatient (CLI) | payer MEDICARE, OTHER, SELFPAY ==
[2022-07-27] MEDS: DENOSUMAB 60 MG/ML SC (15:07)
[2022-07-27 15:09] VITALS: BP 165/76; PULSE 93; RESP 16; TEMP 35.8; O2SAT 96
[2022-07-27 17:19] LABS: Vitamin D,25 Hydroxy 22.7 ng/mL
[2022-07-27 17:28] LABS: AST(SGOT) 13 U/L (15-37); Alanine Aminotransfer ALT/SGPT 27 U/L (13-56); Albumin, Serum 3.7 g/dL (3.2-5.0); Alkaline Phosphatase 63 U/L (45-117); Anion Gap 6 (5-15); BUN 26 mg/dL (7-18); BUN/Creat Ratio 26.9 RATIO (10-20); Calcium,Total 9.7 mg/dL (8.5-10.1); Chloride 101 mmol/L (98-107); Creatinine, Serum 0.97 mg/dL (0.55-1.02); EST Glomerular Filtration Rate 60 mL/min (>60); Est Glom Filt Rate - Afr Amer 73 mL/min (>60); Globulin 3.8 g/dL (2.2-4.2); Glucose 138 mg/dL (74-106); Potassium 3.6 mmol/L (3.5-5.1); Protein, Total 7.5 g/dL (6.4-8.2); Sodium Level 140 mmol/L (136-145); T4 Free Direct 0.83 ng/dL (0.76-1.46); Thyroid Stim Hormone (TSH) 1.01 uIU/mL (0.358-3.74)
== END | disposition home or self-care (01) ==
PROVIDERS: PCP Internal Medicine; Referring Provider Internal Medicine Endocrinology, Diabetes & Metabolism; Visit Provider Internal Medicine Endocrinology, Diabetes & Metabolism
DX: M81.0 Age-related osteoporosis without current pathological fracture (principal); E55.9 Vitamin D deficiency, unspecified; E04.1 Nontoxic single thyroid nodule
CPT/HCPCS: 36415; 80053; 82306; 84439; 84443; 96372; J0897

== ENCOUNTER 2022-08-15 10:27 | Emergency (ER) | payer MEDICARE, OTHER, SELFPAY ==
[2022-08-15 10:28] VITALS: BP 162/83; PULSE 88; RESP 18; TEMP 36.6; O2SAT 99; BMI 29.5
--- NOTE | 2022-08-15 10:44 | CT_ITS ---
STUDY: CT ABDOMEN AND PELVIS WITH CONTRAST REASON FOR EXAM: Female, 72 years old. RUQ pain RADIATION DOSAGE (If Supplied By Facility): CTDIvol = ( 17.95 ) mGy, DLP = ( 865.88 ) mGycm TECHNIQUE: Transaxial images were obtained from the dome of the diaphragm to the symphysis pubis without oral contrast. IV 100mL Isovue-370 was administered. Sagittal and coronal images were reconstructed. Individualized dose optimization techniques were used for this CT. COMPARISON: None. FINDINGS: Chronic interstitial changes in both lung bases with bibasilar atelectasis. The visualized portions of the heart are within normal limits. Liver is unremarkable aside from incidental note of a Weatherly tail left lobe which projects over the anterior spleen. Normal gallbladder and extrahepatic biliary system. Normal spleen. Normal pancreas. Normal bilateral adrenal glands. Normal right kidney. Normal left kidney. Normal visualized stomach. Normal small intestine. Retained stool noted throughout the colon, there are a few scattered sigmoid diverticula without CT evidence of acute diverticulitis. The appendix is visualized and appears normal. Appendix is seen on axial images 56-61. Incidental note is made of nonspecific inflammatory changes in the mesenteric fat in the right upper quadrant anterior to the liver which may be the source of pain Normal abdominal aorta. Normal inferior vena cava. Normal retroperitoneum. Normal urinary bladder. Uterus is present, the endometrium cannot be accurately evaluated with CT. No suspicious cystic mass or free fluid. There is a small umbilical hernia containing fat. There are diffuse degenerative changes of the visualized lumbar spine, and pelvis with a nonspecific sclerotic focus within the L3 vertebral body. CT/Abdomen/Pelvis W IV Cont ONLY IMPRESSION: No suspicious solid organ abnormality No free intraperitoneal fluid, air, or suspicious adenopathy. Normal appendix visualized. There is nonspecific inflammatory stranding of the mesenteric fat in the right upper quadrant adjacent to the right lobe of the liver which may be the source of the patient''s pain Uterus is present, the endometrium cannot be accurately evaluated with CT Retained stool throughout the colon Electronically Signed: Tato Lewis MD at 12:15 EST ,
--- NOTE | 2022-08-15 10:46 | ED.VIS.GI ---
HPI HPI - GI History of Present Illness Chief Complaint: Abd Pain Narrative Narrative: 72-year-old male presents with right upper quadrant and right flank pain over the last 3 days. She states that on , 3 days ago, she was getting out of the car, and felt pain in her right flank and in her right upper quadrant. It was worse with movement. She denies any fevers or chills. No nausea or vomiting. She states that she was fine yesterday, but today, as she was getting out of the car again she is having right upper quadrant pain. She has occasional cough, and presents wanting her pain to go away. She states that it could be pneumonia or her gallbladder. However, food does not make it worse. It is worse with certain positions, and sitting up. PFSH PFSH Medical History Anesthesia complication Arthritis Asthma Autoimmune disorder Breast lump Carpal tunnel syndrome Cataract Failing dental implant Goiter History of meniscal tear Hypertension Lichen planus Lichen sclerosus Osteoarthritis Osteoporosis Pneumonia Seasonal allergies Thyroid nodule Home Medications acyclovir 400 mg tablet 400 mg PO DAILY cold sores 07/24/19 [History Last Taken Unknown] calcium carb-vit [id number] 333 mg-200 unit-133 mg-5 mg tablet 1 ea PO DAILY supplement 07/24/19 [History Last Taken Unknown] citalopram 20 mg tablet 20 mg PO DAILY depression 07/24/19 [History Last Taken 08/16/19] triamterene 37.5 mg-hydrochlorothiazide 25 mg tablet 1 ea PO DAILY bp 07/24/19 [History Last Taken 08/16/19] cholecalciferol (vitamin D3) 50 mcg (2,000 unit) capsule 100 mcg PO DAILY 10/29/20 [History Last Taken Unknown] clobetasol 0.05 % topical cream 1 applic topical DAILY 10/29/20 [History Last Taken Unknown] cyanocobalamin (vitamin B-12) 500 mcg tablet 2,000 mcg PO DAILY supplement 10/29/20 [History Last Taken Unknown] biotin 5,000 mcg disintegrating tablet 10,000 mcg PO DAILY 12/19/20 [History Last Taken Unknown] buspirone 10 mg tablet 1 tablet PO DAILY 06/02/21 [History Last Taken Unknown] meloxicam 7.5 mg tablet 15 mg PO DAILY 06/11/21 [History Last Taken Unknown] denosumab 60 mg/mL subcutaneous syringe 60 mg subcut [id number] #1 mL 12/08/21 [Rx Last Taken Unknown] docusate sodium 100 mg capsule (Dulcolax Stool Softener (docusate)) 100 mg PO BID #20 caps 08/15/22 [Rx Last Taken Unknown] oxycodone 5 mg tablet 5 mg PO Q8H PRN pain 3 days #9 tabs 08/15/22 [Rx Last Taken Unknown] polyethylene glycol 3350 17 gram/dose oral powder (Miralax) 17 g PO BID #238 grams 08/15/22 [Rx Last Taken Unknown] Allergy/AdvReac Type Severity Reaction Status Date / Time erythromycin base Allergy Rash Verified 08/15/22 10:28 latex Allergy Rash Verified 08/15/22 10:28 nickel Allergy Rash Verified 08/15/22 10:28 nitrofurantoin Allergy Rash Verified 08/15/22 10:28 [From Macrobid] oxytetracycline Allergy Rash Verified 08/15/22 10:28 [From Terramycin] shellfish derived Allergy Other Verified 08/15/22 10:28 Sulfa (Sulfonamide Allergy Other Verified 08/15/22 10:28 Antibiotics) Family History Father Alcoholism Diabetes Myocardial infarction Mother Anxiety Arthritis Hypertension Osteoporosis Other Asthma Surgical History H/O arthroscopic knee surgery History of carpal tunnel surgery of left wrist History of carpal tunnel surgery of right wrist History of left hip replacement History of surgical removal of ganglion cyst History of tonsillectomy and adenoidectomy Hx of breast lump removal Hx of cataract surgery Social History Smoking Status: Never smoker alcohol intake: current alcohol intake frequency: a few times a month substance use type: does not use ROS ROS ED ROS Narrative Constitutional: No fever, no chills. HEENT: No sore throat. No neck pain. No loss of vision. No rhinorrhea. Cardiovascular: No chest pain. No palpitations. No pedal edema. Respiratory: No cough, no shortness of breath. Abdominal: Right flank to right upper quadrant abdominal pain. No nausea. No vomiting. No problems with bowel movements. Genitourinary: No dysuria. No hematuria. Musculoskeletal: No myalgias. No arthralgias. Neurologic: No headaches. No dizziness. No lightheadedness. Skin: No rash. No change in color. Psychiatric: No depression. No anxiety. EXAM Physical Exam Narrative Exam Narrative: Afebrile. Vital signs noted. HEENT: Normocephalic. Atraumatic. PERRL, EOMI. Neck soft and supple. No point tenderness or step off. Cardiovascular: Regular rate and rhythm. No murmurs, rubs, or gallops appreciated. Respiratory: No tachypnea. Lungs clear to auscultation bilaterally. Gastrointestinal: Abdomen soft, mild tenderness to palpation right upper quadrant on abdominal wall musculature, positive pain with half sit up and contraction of abdominal wall muscles, with normoactive bowel sounds. No rebound or guarding. Neurological: Awake. Alert. Nonfocal, nonlateralizing. Skin: No rash. Normal color. No pallor. Musculoskeletal: No pedal edema. Full range of motion extremities. Const Vital Signs: 08/15/22 10:28 Temperature 97.9 F Temperature Source Temporal Pulse Rate 88 Respiratory Rate 18 Blood Pressure 162/83 H Blood Pressure Mean 109 Pulse Ox 99 Oxygen Delivery Method Room Air MDM MDM MDM Narrative Medical decision making narrative: In the differential diagnosis is abdominal wall strain versus cholecystitis versus pneumonia. Comprehensive work-up was pursued. She was administered morphine and ondansetron for analgesia. I will obtain CBC, CMP, and lipase to rule out pancreatitis or gallstone pancreatitis. CT imaging with IV contrast will be obtained. I will also obtain a chest x-ray because of her concern for pneumonia although this is lower on the differential because she has not had fever or productive cough. Additionally, her pulse ox is 99% on room air without evidence of hypoxia. I reviewed the patient's lab results and she has a normal white count of 7.4, hemoglobin normal at 13.8, platelet count normal at 329. Review of her CMP reveals normal sodium of 138, normal potassium of 3.6. LFTs are normal at 20 and 30 for her AST and ALT respectively. Lipase normal at 114. Chest x-ray reviewed by myself and interpreted by myself which shows no evidence of a pneumonia especially in the right lower lobe that would be causing her pain. I reviewed the CT report and there is nonspecific mesenteric fat stranding in the right upper quadrant. No free air or free fluid. As this is nonspecific, but a CT intra-abdominal finding, I discussed the patient with Dr. New, general surgeon on-call. He noticed that she has a large stool burden and would like her placed on a stool softener and a laxative/bowel regime. She was written for MiraLAX and Dulcolax stool softener. She did require a few tablets of oxycodone 5 mg to take for severe breakthrough pain. It was felt that she could be discharged to follow-up with general surgery early next week. Of note, she has been seen by Dr. Cervantes in the past that she was given the option to follow up with him as well. I feel she be discharged safely home with follow-up. Return instructions to the emergency department were reviewed. Disposition is discharged home in stable condition. Lab Data Attestation: I reviewed the patient's lab results. Labs: Laboratory Results - last 24 hr 08/15/22 08/15/22 11:03 11:03 WBC 7.4 RBC 4.60 Hgb 13.8 Hct 41.8 MCV 90.9 MCH 30.0 MCHC 33.0 RDW Std Deviation 42.5 RDW Coeff of Mary 12.8 Plt Count 329 MPV 8.9 Immature Gran % (Auto) 0.300 Neut % (Auto) 55.3 Lymph % (Auto) 26.5 [place] % (Auto) 9.2 Eos % (Auto) 7.8 H Baso % (Auto) 0.9 Absolute Neuts (auto) 4.1 Absolute Lymphs (auto) 1.96 Nucleated RBC % 0 Sodium 138 Potassium 3.6 Chloride 103 Carbon Dioxide 30.0 Anion Gap 5 BUN 26 H Creatinine 0.85 Estim Creat Clear Calc 47.32 Est GFR (MDRD) Af Amer 85 Est GFR (MDRD) Non-Af 70 BUN/Creatinine Ratio 30.7 H Glucose 89 Calcium 9.5 Total Bilirubin 0.70 AST 20 ALT 30 Alkaline Phosphatase 70 Total Protein 6.9 Albumin 3.4 Globulin 3.5 Albumin/Globulin Ratio 1.0 Lipase 114 Radiography Diagnostic Testing: Clinical Impression(s) from Imaging Studies Abdomen/Pelvis CT 08/15/22 10:44 IMPRESSION: No suspicious solid organ abnormality No free intraperitoneal fluid, air, or suspicious adenopathy. Normal appendix visualized. There is nonspecific inflammatory stranding of the mesenteric fat in the right upper quadrant adjacent to the right lobe of the liver which may be the source of the patient''s pain Uterus is present, the endometrium cannot be accurately evaluated with CT Retained stool throughout the colon Electronically Signed: Tato Lewis MD at 12:15 EST Reading Location ID and State: [facility] / [place] , Service support , Discharge Plan Triage Chief Complaint: Abd Pain ED Provider: Genaro Maharaj Dx/Rx/DC Orders Clinical Impression: Abdominal pain, RUQ, Constipation Instructions: ED Abdominal Pain Unkn Cause Fem, ED Constipation (Adult) Prescriptions: New oxycodone 5 mg tablet 5 mg PO Q8H PRN (Reason: pain) 3 Days Qty: 9 0RF docusate sodium [Dulcolax Stool Softener (dss)] 100 mg capsule 100 mg PO BID Qty: 20 0RF polyethylene glycol 3350 [Miralax] 17 gram/dose powder 17 g PO BID Qty: 238 0RF No Action cholecalciferol (vitamin D3) 50 mcg (2,000 unit) capsule 100 mcg PO DAILY clobetasol 0.05 % cream 1 applic topical DAILY buspirone 10 mg tablet 1 tablet PO DAILY biotin 5,000 mcg tablet,disintegrating 10,000 mcg PO DAILY acyclovir 400 MG tablet 400 mg PO DAILY citalopram 20 MG tablet 20 mg PO DAILY triamterene-hydrochlorothiazid 1 EACH tablet 1 ea PO DAILY calcium carb-D3-mag [id number] 1 EACH tablet 1 ea PO DAILY cyanocobalamin (vitamin B-12) 500 mcg tablet 2,000 mcg PO DAILY meloxicam 7.5 MG tablet 15 mg PO DAILY Rx Instructions: Break 15 mg tablet in half: Take half tablet twice daily for 4 weeks postoperatively. denosumab 60 mg/mL syringe 60 mg subcut [id number] Qty: 1 1RF Primary Care Provider: Gaby Gilliland Referrals: Gaby Gilliland DO [Primary Care Provider] - Brown New MD [Med Staff - Active Staff] - 3-5 Days Tacos Cervantes MD [Med Staff - Active Staff] - 3-5 Days Activity Restrictions/Additional Instructions: Follow-up with general surgery early next week. Your case has been discussed with Dr. New, but you may follow-up with Dr. Cervantes if you choose. Medication as directed. Limit use of narcotic pain medication. Disposition Disposition: Home, Self Care
[2022-08-15] MEDS: 0.9% Normal Saline 1,000 ML 1000 ML IV (10:58)
[2022-08-15] MEDS: Morphine 4 MG/ML Syringe IV (10:58)
[2022-08-15] MEDS: Ondansetron 4 MG/2 ML Vial IV (10:58)
[2022-08-15 11:19] LABS: Absolute Lymphocyte Count 1.96 X10^3/uL (0.83-4.51); Absolute Neutrophil Count 4.1 X10^3/uL (2.0-7.7); Basophil# 0.07 X10^3/uL; Basophil% 0.9 % (0-1); Eosinophil# 0.58 X10^3/uL; Eosinophils% 7.8 % (0-5); Hematocrit 41.8 % (37-47); Hemoglobin 13.8 g/dL (12.0-15.0); Lymphocyte # 1.96 X10^3/ul (0.83-4.51); Lymphocyte % 26.5 % (19-41); Mean Corpuscular Volume 90.9 fL (81-99); Mean Platelet Vol. 8.9 fl (6.2-12.0); Monocyte# 0.68 X10^3/uL; Monocyte% 9.2 % (0-10); NRBC Flagged by Analyzer 0 % (0-5); Neutrophil % 55.3 % (47-70); Platelet Count 329 K/mm3 (150-450); RBC Distribution Width CV 12.8 % (11.6-14.6); RBC Distribution Width SD 42.5 fl (35.1-43.9); White Blood Count 7.4 K/mm3 (4.4-11.0)
--- NOTE | 2022-08-15 11:36 | RAD_ITS ---
INDICATION: CAD EXAMINATION/TECHNIQUE: X-RAY - XR Chest 1 View COMPARISON: None. FINDINGS: LINES/DEVICES: None. LUNGS: Mild left lower lobe atelectasis or fibrosis. Right lung clear. MEDIASTINUM AND CARDIOVASCULAR STRUCTURES: Cardiac silhouette not enlarged. Central airways and mediastinal contour are unremarkable. BONES AND SOFT TISSUES: Unremarkable. RAD/Chest 1 View (Portable) IMPRESSION: Left lower lobe atelectasis or fibrosis. Electronically Signed: Diego Muñoz MD, ANA at 11:58 EST ,
[2022-08-15 11:43] LABS: AST(SGOT) 20 U/L (15-37); Alanine Aminotransfer ALT/SGPT 30 U/L (13-56); Albumin, Serum 3.4 g/dL (3.2-5.0); Alkaline Phosphatase 70 U/L (45-117); Anion Gap 5 (5-15); BUN 26 mg/dL (7-18); BUN/Creat Ratio 30.7 RATIO (10-20); Calcium,Total 9.5 mg/dL (8.5-10.1); Chloride 103 mmol/L (98-107); Creatinine, Serum 0.85 mg/dL (0.55-1.02); EST Glomerular Filtration Rate 70 mL/min (>60); Est Glom Filt Rate - Afr Amer 85 mL/min (>60); Estimated Creatinine Clearance 47.32 ml/min; Globulin 3.5 g/dL (2.2-4.2); Glucose 89 mg/dL (74-106); Lipase 114 U/L (73-393); Potassium 3.6 mmol/L (3.5-5.1); Protein, Total 6.9 g/dL (6.4-8.2); Sodium Level 138 mmol/L (136-145)
[2022-08-15 13:01] VITALS: BP 138/77; PULSE 62; RESP 15; O2SAT 98
== END 2022-08-15 13:05 | disposition home or self-care (01) ==
PROVIDERS: Emergency Provider Emergency Medicine; PCP Internal Medicine; Visit Provider Emergency Medicine
DX: R10.11 Right upper quadrant pain (principal); K59.00 Constipation, unspecified
CPT/HCPCS: 71045; 74177; 80053; 83690; 85025; 96361; 96374; 96375; 99283; J7030; Q9967; J2405

== ENCOUNTER → 2022-09-09 | Outpatient (CLI) | payer MEDICARE, OTHER, SELFPAY ==
--- NOTE | 2022-09-09 07:16 | US_ITS ---
STUDY: ABDOMINAL ULTRASOUND - RIGHT UPPER QUADRANT REASON FOR VISIT: Female, 72 years old abd pain X 3 WEEKS -- HX OF [place] TAIL-LEFT LIVER LOBE-SEEN ON CT 08/15/22 TECHNIQUE: Ultrasound evaluation of the right upper quadrant was performed with real-time and static momin-scale imaging. TECHNICAL QUALITY: Adequate. COMPARISON: CT of the abdomen and pelvis from 10/13/2022. FINDINGS: Liver: The liver measures 13.2 cm. There is diffusely increased echogenicity of the liver. The bile ducts are within normal limits. There is hepatic color flow. The direction of portal flow is hepatopetal. There is no demonstrated mass lesion. Gallbladder: Normal distended gallbladder. The gallbladder wall measures 1.9 mm. There is a negative sonographic Cummings''s sign. There is no pericholecystic fluid. There is a solitary gallstone. Common Bile Duct (C.B.D.): The common bile duct measures 3.6 mm. Pancreas: Normal size of the head, body and tail of the pancreas. There is normal echogenicity of the pancreas. There is no demonstrated pancreatic mass or cyst. Right Kidney: Normal size of the right kidney. The right kidney measures 9.9 x 4.2 x 4.2 cm. Normal renal cortex. The right cortex measures 1.5 cm. There is no demonstrated renal mass or cyst. There is no right hydronephrosis. US/Gallbladder IMPRESSION: Nonspecific fatty infiltrated liver. Cholelithiasis without sonographic evidence for acute cholecystitis. Electronically Signed: Salvatore Reid MD at 16:48 EDT ,
== END | disposition home or self-care (01) ==
LOC: US 07:15
PROVIDERS: PCP Internal Medicine; Visit Provider Surgery
DX: R10.9 Unspecified abdominal pain (principal)
CPT/HCPCS: 76705

== ENCOUNTER 2022-09-24 12:21 | Day surgery (SDC) | payer MEDICARE, OTHER, SELFPAY ==
[2022-09-24] VITALS (7 sets, daily range): BP systolic 99–157; BP diastolic 65–102; PULSE 68–78; RESP 16–18; TEMP 35.4–36; O2SAT 86–100; BMI 28.7
--- NOTE | 2022-09-24 | GASB_PTH ---
PATIENT: JASON LOJA LOC: EN U#:[id number] AGE/SX: 72/F ROOM: RE09/24/[address]: Dr. Brown New MD : 1950 BED: DIS: 09/24/2022 SPEC #: [id number] RECD: 09/24/22 17:09 STATUS: EDDIE SANJU #: [id number] NOAM: 09/24/22 00:[address]: Brown New DEPT: SURGICAL PATHOLOGY RECD BY: Brandon Fraser ENTERED: 09/25/22 08:31 SP TYPE: Gastric Bx OTHR DR: Dr. Gaby Gilliland DO Tissues: A - Gastric mucous membrane B - Gastric mucous membrane C - Esophageal mucous membrane D - Sigmoid colon biopsy E - Rectum, NOS Procedures: Special Stain Group II Surgery Specimen Level IV Alcian Blue/PAS (control) HEADER OPERATION: [place] [place] PRE-OP DIAGNOSIS: RUQ discomfort, heartburn, abnormal CT TISSUE SUBMITTED: A ? Antrum for H. pylori and path, B ? Z line biopsy, C ? Mid esophageal polyp biopsy, D ? Sigmoid colon polyp, E ? Rectal mucosa biopsy MICROSCOPIC DIAGNOSIS A. Antrum, biopsy: Mild gastritis. See microscopic description and comment. B. Z-line biopsy: Fragments of gastroesophageal mucosa with chronic inflammation. Intestinal metaplasia (goblet cell metaplasia) not identified. See comment. C. Mid esophageal polyp, biopsy: Fragments of benign squamous epithelium. D. Sigmoid colon polyp, biopsy: A fragment of colonic mucosa, no pathologic diagnosis. E. Rectal mucosa, biopsy: A fragment of colonic mucosa, no pathologic diagnosis. SJ:shiraz 09/28/2022 COMMENT A. The results of immunohistochemistry for Helicobacter pylori will be reported separately ([id number]). B. Alcian blue/PAS stain with matched control is used in the evaluation of the specimen. MICROSCOPIC DESCRIPTION Slides are reviewed. A. The specimen shows fragments of gastric mucosa with chronic inflammatory cell infiltrates in the lamina propria consisting of lymphocytes and plasma cells, consistent with mild chronic gastritis. GROSS DESCRIPTION A - Received in fixative is one container labeled with the patient's name and designated antrum. The specimen consists of two irregular fragments of light leiva soft tissue that in aggregate measure 0.6 x 0.3 x 0.1 cm. The specimen is totally submitted in one cassette. B - Received in fixative is one container labeled with the patient's name and designated Z-line biopsy. The specimen consists of two irregular fragments of light leiva soft tissue that in aggregate measure 0.6 x 0.3 x 0.1 cm. The specimen is totally submitted in one cassette. C - Received in fixative is one container labeled with the patient's name and designated mid esophageal polyp biopsy. The specimen consists of multiple irregular fragments of light leiva soft tissue that in aggregate measure 0.3 x 0.3 x 0.1 cm. The specimen is totally submitted in one cassette. D - Received in fixative is one container labeled with the patient's name and designated sigmoid colon polyp. The specimen consists of one irregular fragment of light leiva soft tissue that measures 0.5 x 0.5 x 0.1 cm. The specimen is totally submitted in one cassette. E - Received in fixative is one container labeled with the patient's name and designated rectal mucosa biopsy. The specimen consists of one irregular fragment of light leiva soft tissue that measures 0.4 x 0.4 x 0.1 cm. The specimen is totally submitted in one cassette. / SJ:shiraz 09/25/2022 TC:3 CPT: 84645 x5, 47484
--- NOTE | 2022-09-24 13:30 | IMM_PTH ---
PATIENT: JASON LOJA LOC: EN U#:[id number] AGE/SX: 72/F ROOM: RE09/24/[address]: Dr. Brown New MD : 1950 BED: DIS: 09/24/2022 SPEC #: [id number] RECD: 09/25/22 11:38 STATUS: EDDIE REJuju #: [id number] NOAM: 09/24/22 13:[address]: Brown New DEPT: IMMUNOHISTOCHEMISTRY RECD BY: Mel Hendrix ENTERED: 09/25/22 11:45 SP TYPE: IMMUNO OTHR DR: Dr. Gaby Gilliland DO Tissues: A - Stomach, NOS Procedures: H Pylori (initial) PHYSICIAN & INSTITUTION [place] [id number] SPECIMEN INFORMATION: Tissue Source: A ? Antrum Clinical Info: RUQ discomfort, heartburn, abnormal CT Specimen Number: [id number] CPT code: 17275 METHODOLOGY: Deparaffinized sections of prefer/formalin-fixed tissue or PAP/DQ stained slides are incubated with monoclonal/polyclonal antibodies/oligonucleotide probes. Localization is made via biotin free immunoperoxidase method. Appropriate controls are performed and reacted as expected. Results on target cell population are indicated in the following table: RESULTS: ANTIBODY / CLONE RESULT Block A H Pylori (polyclonal) negative These tests were developed and their performance characteristics determined by [facility]. They may not have been cleared or approved by the U.S. Food and Drug Administration. The FDA has determined that such clearance or approval is not necessary. The above immunohistochemical/dualISH markers are ordered and reviewed by the Pathologist. INTERPRETATION: A. Antrum, biopsy: Negative for Helicobacter pylori organisms. SJ:shiraz 09/28/2022
[2022-09-24] MEDS: Lactated Ringers 1,000 ML 15 ML IV (14:06)
--- NOTE | 2022-09-24 15:33 | PCM.HP.BLA ---
History and Physical Date of Admission: 09/24/22 Patient is known to me for a prior consultation visit last month regarding a ER visit where she was diagnosed with isolated right upper quadrant fat stranding.? Patient's last visit was 08/18/2022 at which point I diagnosed her with a omental infarction.? Patient states that she has been taking MiraLAX regularly as recommended and is now experiencing 2-3 soft bowel movements per day.? She notes, however, that she is still experiencing right upper quadrant abdominal pain and nausea (but no vomiting).? She reports these symptoms are in response to 2 greasy foods and raw onions, in particular.? She notes that Rolaids do not seem to offer any relief.? She reports that the right upper quadrant pain radiates to her back and she wishes to know whether she can have a scan for her gallbladder.? She reports that currently the radiating is not an issue and it only hurts directly in her right upper quadrant.? This pain tends to occur in the late morning or lunch hour.? She denies any reflux, but reports some heartburn last evening in response to eating an orange for a bedtime snack.? She confirms that this discomfort is distinct from the pain that she has been feeling.? She confirms that she is still avoiding any strenuous lifting or other strenuous activity.? She denies any significant weight changes recently, but admits to a gradual weight gain as she has had decreased activity since undergoing knee surgery. Below is recapitulated from patient's consultation visit for ease of review: HPI: Patient is a 72-year-old female who presents for follow-up of a recent ER visit for complaints of acute onset right upper quadrant abdominal pain beginning 08/13/2022, but intensifying over the subsequent 48 hours to the point that she presented to the emergency department on 08/15/2022.? Extensive work-up was done by emergency medicine including laboratories and CT imaging.? CT imaging identified some isolated mesenteric stranding in the right upper quadrant. She states that the pain began all of a sudden.? She denies any prior experience of this pain.? She denies any trauma to the area, but confesses that she frequently lifts more than she should and gives examples of a 40 pound bag of dog food, a solid [place] test chair, and a 30 pound briefcase all within several days of her development of pain.? Because of this admission, she reports that she believes it is muscular.? She states this because she has never had gallbladder trouble and has only occasional heartburn/indigestion.? She admits to some difficulty with constipation and confirms that she has been following the recommendations given through the ER to remain on a stool softener or MiraLAX.? On this regimen she reports that she has now had 4 bowel movements today.? She notes that her abdominal discomfort is markedly improved over when she presented to the ER. Patient has had prior colonoscopy in 2006.? She reports that there were no significant findings, but she does not recall a follow-up interval.? Patient has no personal history of colon cancer, inflammatory bowel disease, or diverticulitis. They describe their bowel habits as not having bowel movements as much as [I] should and believes this is due to her diet that is heavy and cheese and eating poorly.? She reports that these dietary issues are compounded by her lack of water intake as she drinks mostly coffee during the winter months (stays more hydrated when it is warmer).? They, generally, have approximately 1 per day and spend roughly a few minutes on the toilet without significant straining.? Yet lately she reports that they have been dry and hard .? They have not noticed recent bleeding or dark stools.? They do not regularly take fiber supplements.? They do not consume significant fiber in their regular diet.? There is a remote history of hemorrhoids in the period with her daughter many years ago. Patient has no family history of colon cancer, inflammatory bowel disease, or diverticulitis.? She notes that her daughter is diagnosed with IBS.? ? The patient's weight is not stable; patient reports weight gain of approximately 30 pounds over the last 5 years. The patient is not prescribed anticoagulants/blood thinners. Relevant prior abdominal surgical history includes: 1983 Patient does not have a significant history of GERD/heartburn.? She notes that her experience of heartburn/indigestion occurs no more than once or twice per month and she never experiences reflux. ROS General General: Yes weight change and fatigue; No appetite, colon cancer, breast cancer or weakness HEENT HEENT: Yes eye injury and eye surgery; No difficulty swallowing, swollen glands or hoarseness Endo Endocrine: Yes thyroid disease; No diabetes mellitus, thyroid cancer, Hair loss, heat intolerance or cold intolerance Skin Skin: No rash or changing moles Breast Breast: No left breast lump, right breast lump, nipple discharge, breast pain, abnormal mammogram, abnormal US or breast enlargement Musc Musculoskeletal: Yes back problems; No arthritis, rheumatoid arthritis, gout or joint pain Cardio Cardiovascular: Yes high blood pressure; No murmur, pacemaker, heart disease, atrial fibrillation, heart attack, heart stent, palpitations, shortness of breat with exertion or chest pain Psych Psychiatric: Yes anxiety; No depression or hearing voices Resp Respiratory: No shortness of breath, No sleep apnea, Yes cough, No COPD, Yes asthma, No emphysema and No wheezing Gastro Gastrointestinal: Yes abdominal pain, No nausea or vomiting, No diarrhea, Yes constipation, No blood in stool, No acid reflux, No hemorrhoids, No ulcers, No gallbladder problem and No black,tarry stools [place] Hematologic: No blood thinners, No blood disorders, No bleeding, No anemia and No blood clots Neuro Neurologic: No system reviewed and no additional complaints, except as documented, No as per HPI, No abnormal gait, No abnormal hearing, No abnormal movements, No abnormal speech, No behavioral changes, No burning sensations, No confusion, No convulsions, No disequilibrium, No dizziness, No localized weakness, No frequent falls, No headache(s), No lack of coordination, No loss of vision, No memory loss, No numbness, No other visual disturbances, No radicular pain, No restless legs, No sensory deficit, No syncope, No tingling, No tremor(s), No weakness and No other Exam Const General: cooperative, healthy appearing and no acute distress Orientation: alert, awake and oriented x3 Resp Effort & Inspection: normal respiratory effort GI Other: Nondistended, no scars, soft, tender to palpation in the right upper quadrant just below the costal margin.? Negative Cummings sign Assessment and Plan Assessment and Plan (1) Right upper quadrant abdominal pain: ?Status:?Acute ?Comment: This is a 72-year-old female who makes a follow-up outpatient visit due to persistent right upper quadrant abdominal discomfort after a initial visit last month for a diagnosis of omental infarction.? Although patient has remained on activity restrictions, she reports ongoing right upper quadrant discomfort that is associated with radiation and nausea.? She believes there is a postprandial component to this discomfort.? Right upper quadrant tenderness is confirmed on exam, but I believe the sensitivity of this exam is somewhat limited by the fact that patient does have a recent CT finding of omental infarction along the same trajectory.? With the inability to rely on this exam, I do agree further investigation of the gallbladder is warranted.? In the meantime I have asked patient to be mindful of the foods that she finds triggers her discomfort. ?Plan: ? Right upper quadrant ultrasound ? Food diary recommended (2) Omental infarction: ?Status:?Acute ?Comment: Patient's history and imaging most consistent with omental infarction likely secondary to recent strenuous activity.? Patient's CT imaging was, again, shared with her during today's visit as well as this impression.? Would have expected further improvement in her abdominal discomfort by now so we will continue with plans to proceed with colonoscopy, but also had right upper quadrant ultrasound as above. ? ? ? Orders: Orders Gallbladder Today R10.9 - Unspecified abdominal pain ? Interval: Patient seen and examined. Denies any updates to health history. Experiencing less ab pain overall but finds that she can experience it after foods she recently previously tolerated. Prep completed without difficulty and output now clear. Will proceed with diagnostic colonoscopy and EGD as discussed above.
--- NOTE | 2022-09-24 17:12 | OP.EGD_ITS ---
Patient Name: Donya Thomas Procedure Date: 09/24/2022 3:18 PM Date of : 1950 Age: 72 Procedure: Upper GI endoscopy Indications: Abdominal pain in the right upper quadrant, Heartburn Providers: Brown New MD Referring MD: Brown New MD Medicines: See the Anesthesia note for documentation of the administered medications Patient Profile: Refer to note in patient chart for documentation of history and physical. Complications: No immediate complications. Estimated blood loss: Minimal. Procedure: Pre-Anesthesia Assessment: - The heart rate, respiratory rate, oxygen saturations, blood pressure, adequacy of pulmonary ventilation, and response to care were monitored throughout the procedure. After obtaining informed consent, the endoscope was passed under direct vision. Throughout the procedure, the patient's blood pressure, pulse, and oxygen saturations were monitored continuously. The colonoscope was introduced through the mouth, and advanced to the second part of duodenum. The upper GI endoscopy was somewhat difficult due to the patient's respiratory instability (bronchospasm). Successful completion of the procedure was aided by managing the patient's medical instability. The patient tolerated the procedure fairly well. Scope In: 3:38:58 PM Scope Out: 3:59:13 PM Total Procedure Duration Time 0 hours 20 minutes 15 seconds Findings: The duodenal bulb, first portion of the duodenum and second portion of the duodenum were normal. No biopsies or other specimens were collected for this exam. Patchy mildly erythematous mucosa without bleeding was found in the gastric antrum. Biopsies were taken with a cold forceps for Helicobacter pylori cultures. Estimated blood loss was minimal. A medium-sized hiatal hernia was present. No biopsies or other specimens were collected for this exam. The gastroesophageal flap valve was visualized endoscopically and classified as Hill Grade IV (no fold, wide open lumen, hiatal hernia present). No biopsies or other specimens were collected for this exam. The Z-line was irregular and was found 36 cm from the incisors. Biopsies were taken with a cold forceps for histology. Estimated blood loss was minimal. Multiple 5 mm polyps with no bleeding were found. Biopsies were taken with a cold forceps for histology. Estimated blood loss was minimal. Impression: - Normal duodenal bulb, first portion of the duodenum and second portion of the duodenum. No specimens collected. - Erythematous mucosa in the antrum. Biopsied. - Medium-sized hiatal hernia. No specimens collected. - Gastroesophageal flap valve classified as Hill Grade IV (no fold, wide open lumen, hiatal hernia present). No specimens collected. - Z-line irregular, 36 cm from the incisors. Biopsied. - Esophageal polyp(s) were found. Biopsied. Recommendation: - Discharge patient to home (via wheelchair). - Resume previous diet today. - Continue present medications. - Await pathology results. - Telephone my office for pathology results in 1 week. Procedure Code(s): --- Professional --- 46030, Esophagogastroduodenoscopy, flexible, transoral; with biopsy, single or multiple Diagnosis Code(s): --- Professional --- K31.89, Other diseases of stomach and duodenum K44.9, Diaphragmatic hernia without obstruction or gangrene K22.8, Other specified diseases of esophagus R10.11, Right upper quadrant pain R12, Heartburn CPT copyright 2017 [employer]. All rights reserved. The codes documented in this report are preliminary and upon manager retail sales review may be revised to meet current compliance requirements. Brown New MD 09/24/2022 5:12:05 PM This report has been signed electronically. Number of Addenda: 0 Note Initiated On: 09/24/2022 3:18 PM
--- NOTE | 2022-09-24 17:13 | OP.CCLET_ITS ---
09/24/2022 Gaby Gilliland [address] [place] [address] Re : Upper GI endoscopy procedure for Donya Thomas Dear Dr. Gilliland This procedure was performed on September. My impressions and recommendations are as follows: Impressions : - Normal duodenal bulb, first portion of the duodenum and second portion of the duodenum. No specimens collected. - Erythematous mucosa in the antrum. Biopsied. - Medium-sized hiatal hernia. No specimens collected. - Gastroesophageal flap valve classified as Hill Grade IV (no fold, wide open lumen, hiatal hernia present). No specimens collected. - Z-line irregular, 36 cm from the incisors. Biopsied. - Esophageal polyp(s) were found. Biopsied. Recommendations : - Discharge patient to home (via wheelchair). - Resume previous diet today. - Continue present medications. - Await pathology results. - Telephone my office for pathology results in 1 week. My findings are described in the full procedure note, which is enclosed. If I can be of further assistance, please feel free to contact me at Doctor phone number(s): , Work: . Sincerely, Brown New MD 09/24/2022 5:12:05 PM This report has been signed electronically.
--- NOTE | 2022-09-24 17:21 | OP.COLON_ITS ---
Patient Name: Donya Thomas Procedure Date: 09/24/2022 4:06 PM Date of : 1950 Age: 72 Procedure: Colonoscopy Indications: Abdominal pain in the right upper quadrant, Abnormal CT of the GI tract, Constipation Providers: Brown New MD Referring MD: Brown New MD Medicines: See the Anesthesia note for documentation of the administered medications Patient Profile: Refer to note in patient chart for documentation of history and physical. Last Colonoscopy: more than 10 years ago. Complications: No immediate complications. Estimated blood loss: Minimal. Procedure: Pre-Anesthesia Assessment: - The heart rate, respiratory rate, oxygen saturations, blood pressure, adequacy of pulmonary ventilation, and response to care were monitored throughout the procedure. - The heart rate, respiratory rate, oxygen saturations, blood pressure, adequacy of pulmonary ventilation, and response to care were monitored throughout the procedure. After I obtained informed consent, the scope was passed under direct vision. Throughout the procedure, the patient's blood pressure, pulse, and oxygen saturations were monitored continuously. The colonoscope was introduced through the anus and advanced to the cecum, identified by palpation. The colonoscopy was somewhat difficult due to poor bowel prep, significant looping and a tortuous colon. Successful completion of the procedure was aided by straightening and shortening the scope to obtain bowel loop reduction and lavage. The patient tolerated the procedure well. The quality of the bowel preparation was poor. Scope In: 4:07:41 PM Scope Withdrawal Time 0 hours 27 minutes 56 seconds Scope Out: 4:59:35 PM Total Procedure Duration Time 0 hours 51 minutes 54 seconds Findings: Multiple medium-sized patchy angioectasias without bleeding were found in the transverse colon and in the ascending colon. No biopsies or other specimens were collected for this exam. A 4 mm polyp was found in the sigmoid colon. The polyp was semi-sessile. Biopsies were taken with a cold forceps for histology. Estimated blood loss was minimal. Localized mild inflammation characterized by erythema was found in the distal rectum. Biopsies were taken with a cold forceps for histology. Estimated blood loss was minimal. The exam was otherwise without abnormality on direct and retroflexion views. Impression: - Preparation of the colon was poor. - Multiple non-bleeding colonic angioectasias. No specimens collected. - One 4 mm polyp in the sigmoid colon. Biopsied. - Localized mild inflammation was found in the distal rectum. Biopsied. - The examination was otherwise normal on direct and retroflexion views. Recommendation: - Discharge patient to home (via wheelchair). - Resume previous diet today. - Continue present medications. - Await pathology results. - Telephone my office for pathology results in 1 week. - Repeat colonoscopy is recommended [Repeat reason]. The colonoscopy date will be determined after pathology results from today's exam become available for review. Procedure Code(s): --- Professional --- 68264, Colonoscopy, flexible; with biopsy, single or multiple Diagnosis Code(s): --- Professional --- K55.20, Angiodysplasia of colon without hemorrhage D12.5, Benign neoplasm of sigmoid colon K62.89, Other specified diseases of anus and rectum R10.11, Right upper quadrant pain K59.00, Constipation, unspecified R93.3, Abnormal findings on diagnostic imaging of other parts of digestive tract CPT copyright 2017 [employer]. All rights reserved. The codes documented in this report are preliminary and upon senior oracle developer review may be revised to meet current compliance requirements. Brown New MD 09/24/2022 5:21:14 PM This report has been signed electronically. Number of Addenda: 0 Note Initiated On: 09/24/2022 4:06 PM
--- NOTE | 2022-09-24 17:22 | OP.CCLET_ITS ---
09/24/2022 Gaby Gilliland [address] [place] [address] Re : Colonoscopy procedure for Donya Thomas Dear Dr. Gilliland This procedure was performed on September. My impressions and recommendations are as follows: Impressions : - Preparation of the colon was poor. - Multiple non-bleeding colonic angioectasias. No specimens collected. - One 4 mm polyp in the sigmoid colon. Biopsied. - Localized mild inflammation was found in the distal rectum. Biopsied. - The examination was otherwise normal on direct and retroflexion views. Recommendations : - Discharge patient to home (via wheelchair). - Resume previous diet today. - Continue present medications. - Await pathology results. - Telephone my office for pathology results in 1 week. - Repeat colonoscopy is recommended [Repeat reason]. The colonoscopy date will be determined after pathology results from today's exam become available for review. My findings are described in the full procedure note, which is enclosed. If I can be of further assistance, please feel free to contact me at Doctor phone number(s): , Work: . Sincerely, Brown New MD 09/24/2022 5:21:14 PM This report has been signed electronically.
== END 2022-09-24 18:01 | disposition home or self-care (01) ==
LOC: EN 12:21 → AC 12:22
PROVIDERS: PCP Internal Medicine; Referring Provider Surgery; Visit Provider Surgery
PROC: 0DJD8ZZ Inspection of Lower Intestinal Tract, Via Natural or Artificial Opening Endoscopic (ICD-10-PCS; CPT 45378; principal; 2022-09-24 13:25)
DX: D13.0 Benign neoplasm of esophagus (principal); K29.50 Unspecified chronic gastritis without bleeding; K44.9 Diaphragmatic hernia without obstruction or gangrene; D12.5 Benign neoplasm of sigmoid colon; K55.20 Angiodysplasia of colon without hemorrhage; K62.89 Other specified diseases of anus and rectum; K59.00 Constipation, unspecified; K21.9 Gastro-esophageal reflux disease without esophagitis; R93.3 Abnormal findings on diagnostic imaging of other parts of digestive tract; I10 Essential (primary) hypertension; F41.9 Anxiety disorder, unspecified; F10.90 Alcohol use, unspecified, uncomplicated; Z79.899 Other long term (current) drug therapy
CPT/HCPCS: 43239; 45380; 88305; 88313; 88342; J7120; J2405

== ENCOUNTER → 2022-11-04 | Outpatient (CLI) | payer MEDICARE, OTHER, SELFPAY ==
[2022-11-04 14:20] LABS: Vitamin D,25 Hydroxy 50.8 ng/mL
== END | disposition home or self-care (01) ==
LOC: LAB 12:18
PROVIDERS: PCP Internal Medicine; Referring Provider Internal Medicine Endocrinology, Diabetes & Metabolism; Visit Provider Internal Medicine Endocrinology, Diabetes & Metabolism
DX: E55.9 Vitamin D deficiency, unspecified (principal)
CPT/HCPCS: 36415; 82306

== ENCOUNTER 2023-01-25 14:54 | Outpatient (CLI) | payer MEDICARE, OTHER, SELFPAY ==
[2023-01-25 15:31] VITALS: BP 159/62; PULSE 89; RESP 16; O2SAT 95
[2023-01-25] MEDS: DENOSUMAB 60 MG/ML SC (15:32)
== END 2023-01-25 14:55 | disposition home or self-care (01) ==
LOC: MEDOUTP 14:54
PROVIDERS: PCP Internal Medicine; Referring Provider Internal Medicine Endocrinology, Diabetes & Metabolism; Visit Provider Internal Medicine Endocrinology, Diabetes & Metabolism
DX: M81.0 Age-related osteoporosis without current pathological fracture (principal)
CPT/HCPCS: 96372; J0897

== ENCOUNTER → 2023-04-20 | Outpatient (CLI) | payer MEDICARE, OTHER, SELFPAY ==
[2023-04-20 16:34] LABS: Vitamin D,25 Hydroxy 43.3 ng/mL
[2023-04-20 16:40] LABS: T4 Free Direct 0.78 ng/dL (0.76-1.46); Thyroid Stim Hormone (TSH) 1.13 uIU/mL (0.358-3.74)
== END | disposition home or self-care (01) ==
LOC: LAB 14:54
PROVIDERS: PCP Internal Medicine; Referring Provider Internal Medicine Endocrinology, Diabetes & Metabolism; Visit Provider Internal Medicine Endocrinology, Diabetes & Metabolism
DX: E04.1 Nontoxic single thyroid nodule (principal); E55.9 Vitamin D deficiency, unspecified
CPT/HCPCS: 36415; 82306; 84439; 84443

== ENCOUNTER → 2023-04-23 | Outpatient (CLI) | payer MEDICARE, OTHER, SELFPAY ==
[2023-04-23 15:41] LABS: Absolute Lymphocyte Count 1.93 X10^3/uL (0.83-4.51); Absolute Neutrophil Count 1.9 X10^3/uL (2.0-7.7); Basophil# 0.05 X10^3/uL; Eosinophil# 0.64 X10^3/uL; Eosinophils% 12.9 % (0-5); Hematocrit 40.3 % (37-47); Hemoglobin 12.9 g/dL (12.0-15.0); Lymphocyte # 1.93 X10^3/ul (0.83-4.51); Lymphocyte % 38.8 % (19-41); Mean Corpuscular Hgb 30.6 pg (27.0-32.0); Mean Corpuscular Volume 95.5 fL (81-99); Mean Platelet Vol. 8.7 fl (6.2-12.0); Monocyte# 0.45 X10^3/uL; NRBC Flagged by Analyzer 0 % (0-5); Neutrophil % 38.1 % (47-70); Platelet Count 303 K/mm3 (150-450); RBC Distribution Width CV 12.6 % (11.6-14.6); RBC Distribution Width SD 44.3 fl (35.1-43.9); Red Blood Count 4.22 M/mm3 (4.2-5.4)
[2023-04-23 16:15] LABS: ALB/GLOB Ratio 1.1 RATIO (0.9-2.4); AST(SGOT) 16 U/L (15-37); Alanine Aminotransfer ALT/SGPT 33 U/L (13-56); Albumin, Serum 3.5 g/dL (3.2-5.0); Alkaline Phosphatase 51 U/L (45-117); Anion Gap 4 (5-15); BUN 27 mg/dL (7-18); BUN/Creat Ratio 25.7 RATIO (10-20); Calcium,Total 8.8 mg/dL (8.5-10.1); Chloride 105 mmol/L (98-107); Creatinine, Serum 1.05 mg/dL (0.55-1.02); EST Glomerular Filtration Rate 55 mL/min (>60); Est Glom Filt Rate - Afr Amer 66 mL/min (>60); Globulin 3.3 g/dL (2.2-4.2); Glucose 144 mg/dL (74-106); Potassium 3.9 mmol/L (3.5-5.1); Protein, Total 6.8 g/dL (6.4-8.2); Sodium Level 138 mmol/L (136-145); Troponin-I HS 6 pg/mL (3.0-54.0)
== END | disposition home or self-care (01) ==
LOC: LAB 15:03
PROVIDERS: PCP Internal Medicine; Visit Provider Internal Medicine
DX: I49.1 Atrial premature depolarization (principal); R68.89 Other general symptoms and signs
CPT/HCPCS: 36415; 80053; 84484; 85025

== ENCOUNTER → 2023-05-12 | Outpatient (CLI) | payer MEDICARE, OTHER, SELFPAY ==
--- NOTE | 2023-05-12 14:52 | BI_ITS ---
MAMMOGRAPHY - BILATERAL SCREENING REASON FOR EXAM: Female, 72 years old. Routine annual screening examination. PERTINENT HISTORY: Non-contributory. TECHNIQUE: Digital bilateral breast drake (3D mammographic acquisition) in the CC and MLO projections. 2-D mediolateral oblique (MLO) and craniocaudad (CC) views of both breasts were obtained. CAD: Full Field Digital Mammography with Computer Added Detection was performed. COMPARISON: Comparison is made with prior study dated April 29, 2022 and November 20, 2020. FINDINGS: Breast Composition: The breasts are heterogeneously dense, which may obscure small masses. There are no dominant masses or suspicious calcifications. Stable fat-containing bilateral axillary lymph nodes. No other significant abnormalities are identified. There has been no significant change since the prior study. BI/SCRN MAMM (CAD)W/DRAKE BILAT IMPRESSION: Stable bilateral screening mammogram. Yearly follow-up mammogram recommended. (A) ASSESSMENT CATEGORY: BIRADS Category 2: Benign. A letter regarding these results will be sent to the patient by the facility within 30 days. Approximately 10% of breast cancers are not detected by mammography. A normal mammogram should not delay biopsy of a clinically suspicious abnormality. [id number] Electronically Signed: Nik Wiggins MD at 15:37 EST ,
== END | disposition home or self-care (01) ==
LOC: OPBI 14:50
PROVIDERS: PCP Internal Medicine; Referring Provider Obstetrics & Gynecology; Visit Provider Obstetrics & Gynecology
DX: Z12.31 Encounter for screening mammogram for malignant neoplasm of breast (principal)
CPT/HCPCS: 77063; 77067

== ENCOUNTER → 2023-06-02 | Outpatient (CLI) | payer MEDICARE, OTHER, SELFPAY ==
--- NOTE | 2023-06-02 07:57 | ECHOD_ITS ---
Reason For Study: MURMUR Procedure This was a 2D Doppler, Color Flow transthoracic echocardiogram. Exam performed in department. Left Ventricle Normal LV size. The estimated ejection fraction is 65 %. No evidence for diastolic dysfunction. No regional wall motion abnormalities noted. Right Ventricle Normal RV size. Normal systolic function. Atria Normal left atrium. Normal right atrium. No doppler evidence for ASD. Mitral Valve There is moderate mitral annular calcification. There is no mitral valve stenosis. Trivial mitral valve insufficiency. Tricuspid Valve There is no tricuspid stenosis. Unable to estimate RV systolic pressure due to inadequate jet, pulmonary artery pressure probably normal. Aortic Valve Trisinus/trileaflet aortic valve. There is no aortic stenosis. No aortic valve insufficiency. Pulmonic Valve There is no pulmonic valvular stenosis. No pulmonic valve insufficiency. Great Vessels Normal aortic root. Pericardium/Pleural No pericardial effusion. MMode/2D Measurements & Calculations LVIDd: 4.6 cm IVSd: 1.1 cm Ao root diam: 2.8 cm LVIDs: 3.3 cm LVPWd: 0.96 cm FS: 27.9 % LAV(MOD-bp): 46.4 ml LVAd ap4: 22.0 cm2 SV(MOD-sp4): 31.6 ml LAV(MOD-bp) Indexed: 27.0 ml/m2 LVLd ap4: 7.7 cm LAV(MOD-sp2): 46.9 ml EDV(MOD-sp4): 54.9 ml LAV(MOD-sp4): 41.9 ml EDV(sp4-el): 53.8 ml LVAs ap4: 12.5 cm2 LVLs ap4: 6.3 cm ESV(MOD-sp4): 23.4 ml ESV(sp4-el): 21.0 ml EF(MOD-sp4): 57.5 % EF(sp4-el): 61.0 % SV(sp4-el): 32.8 ml LA A4 area: 15.6 cm2 LA dimension(2D): 3.1 cm RA A4 area: 11.5 cm2 TAPSE: 1.8 cm Time Measurements MV dec time: 0.18 sec Doppler Measurements & Calculations MV E max dominic: 94.8 cm/sec Lat Peak E' Dominic: 6.8 cm/sec Med Peak E' Dominic: 4.3 cm/sec MV A max dominic: 100.8 cm/sec E/E' lat: 14.0 E/E' med: 22.2 MV E/A: 0.94 MV V2 max: 111.5 cm/sec Ao V2 max: 113.6 cm/sec MV max P.0 mmHg MV dec slope: 533.1 cm/sec2 Ao max P.2 mmHg MV V2 mean: 68.6 cm/sec Ao V2 mean: 81.1 cm/sec MV mean P.2 mmHg Ao mean P.0 mmHg MV V2 VTI: 29.2 cm Ao V2 VTI: 25.9 cm AV (velocity ratio): 0.69 LV V1 max: 86.7 cm/sec PA V2 max: 75.8 cm/sec LV V1 max P.0 mmHg PA V2 mean: 53.8 cm/sec LV V1 mean P.9 mmHg LV V1 mean: 65.0 cm/sec LV V1 VTI: 17.8 cm ECHO/Echo Complete Interpretation Summary The estimated ejection fraction is 65 %. No evidence for diastolic dysfunction. Trivial mitral valve insufficiency. Ordering Physician: Gaby Gilliland Referring Physician: Gaby Gilliland Performed By: Nanette Bridges RCS
== END | disposition home or self-care (01) ==
LOC: CVS 07:51
PROVIDERS: PCP Internal Medicine; Referring Provider Internal Medicine; Visit Provider Internal Medicine
DX: I49.1 Atrial premature depolarization (principal); R01.1 Cardiac murmur, unspecified
CPT/HCPCS: 93225; 93226; 93306

== ENCOUNTER → 2024-03-08 | Outpatient (CLI) | payer MEDICARE, OTHER, SELFPAY ==
[2024-03-08 09:46] LABS: Mucous, Urine 0 SEEN /hpf (<or=2+); Red Blood Cells-Urine 0 SEEN /hpf (0-5)
[2024-03-08 10:03] LABS: Color, Urine Yellow (Yellow); Glucose, Dipstick Normal (Normal); Ketone-Dipstick Negative (Negative); Leukocyte Esterase-Dipstick 100 /ul (Negative); Nitrite-Dipstick Negative (Negative); Occult Blood-Urine Negative /ul (Negative); Protein-Dipstick Negative (Negative); Specific Gravity, Urine 1.005 (1.002-1.030); Urine Bilirubin Dipstick Negative (Negative); Urine Clarity Clear (Clear); Urine Urobilinogen Normal (Normal)
[2024-03-08 10:04] LABS: Absolute Lymphocyte Count 1.66 X10^3/uL (0.83-4.51); Absolute Neutrophil Count 5.3 X10^3/uL (2.0-7.7); Basophil% 1.2 % (0-1); Eosinophil# 0.74 X10^3/uL; Eosinophils% 8.7 % (0-5); Hemoglobin 13.7 g/dL (12.0-15.0); Lymphocyte # 1.66 X10^3/ul (0.83-4.51); Lymphocyte % 19.6 % (19-41); Mean Corp Hgb Conc 32.6 g/dL (32-36); Mean Corpuscular Hgb 29.3 pg (27.0-32.0); Mean Corpuscular Volume 89.9 fL (81-99); Mean Platelet Vol. 8.9 fl (6.2-12.0); Monocyte% 8.2 % (0-10); NRBC Flagged by Analyzer 0 % (0-5); Neutrophil # 5.26 X10^3/uL (2.7-7.7); Neutrophil % 61.9 % (47-70); Platelet Count 306 K/mm3 (150-450); RBC Distribution Width CV 12.9 % (11.6-14.6); RBC Distribution Width SD 42.2 fl (35.1-43.9); Red Blood Count 4.67 M/mm3 (4.2-5.4); White Blood Count 8.5 K/mm3 (4.4-11.0)
[2024-03-08 10:41] LABS: Microalbumin,Random Urine < 5.0 mg/L (NO RANGE EST.)
[2024-03-08 10:46] LABS: AST(SGOT) 18 U/L (15-37); Alanine Aminotransfer ALT/SGPT 31 U/L (13-56); Albumin, Serum 3.6 g/dL (3.2-5.0); Alkaline Phosphatase 63 U/L (45-117); Anion Gap 6 (5-15); BUN 24 mg/dL (7-18); BUN/Creat Ratio 25.3 RATIO (10-20); Calcium,Total 9.5 mg/dL (8.5-10.1); Chloride 104 mmol/L (98-107); Cholesterol 237 mg/dL (200); Creatinine, Serum 0.95 mg/dL (0.55-1.02); EST Glomerular Filtration Rate 61 mL/min (>60); Est Glom Filt Rate - Afr Amer 74 mL/min (>60); Globulin 3.5 g/dL (2.2-4.2); Glucose 101 mg/dL (74-106); High Density Lipoprotein 62 mg/dL; Potassium 3.9 mmol/L (3.5-5.1); Protein, Total 7.1 g/dL (6.4-8.2); Sodium Level 139 mmol/L (136-145); Thyroid Stim Hormone (TSH) 0.943 uIU/mL (0.358-3.740); Triglycerides 155 mg/dL; Very Low Density Lipoprotein 31 mg/dL (5-40)
[2024-03-08 10:51] LABS: Bacteria 1+ /hpf (None Seen); Squamous Epithelial Cells - UA 0-5 SEEN /hpf (5-10); Transitional Epithelial - Ur 0-5 SEEN /hpf (0-5); White Blood Cells 0-5 SEEN /hpf (0-5)
== END | disposition home or self-care (01) ==
LOC: LAB 09:27
PROVIDERS: PCP Internal Medicine; Referring Provider Internal Medicine; Visit Provider Internal Medicine
DX: E11.9 Type 2 diabetes mellitus without complications (principal)
CPT/HCPCS: 36415; 80053; 80061; 81001; 82043; 82570; 83036; 84443; 85025

== ENCOUNTER → 2024-04-07 | Outpatient (CLI) | payer MEDICARE, OTHER, SELFPAY ==
--- NOTE | 2024-04-07 09:05 | CDU_ITS ---
Reason For Study: Carotid stenosis Rt. Velocities/BP Lt. Velocities/BP Prox CCA 58.9/9.7 cm/sec. Prox CCA 82.8/14.6 cm/sec. Mid CCA 59.8/12.6 cm/sec. Mid CCA 75.1/16.8 cm/sec. Dist CCA 58.7/12.5 cm/sec. Dist CCA 71.8/13.5 cm/sec. Prox ICA 63/11.3 cm/sec. Prox ICA 77.3/22.3 cm/sec. Mid ICA 72.9/19 cm/sec. Mid ICA 78.4/24.5 cm/sec. Dist ICA 64.1/21.2 cm/sec. Dist ICA 86.1/24.5 cm/sec. Rt. ICA/CCA = 1.22. Lt. ICA/CCA = 1.15. Prox ECA 120.7/11.4 cm/sec. Prox ECA 86.1/4.7 cm/sec. Rt. Vert. 42.1/9.1 cm/sec. Lt. Vert. 45.6/13.3 cm/sec. Right Extracranial There is homogeneous, smooth atherosclerotic plaque noted in the right common carotid artery. There is homogeneous, smooth atherosclerotic plaque noted in the right internal carotid artery. There is intimal thickening but no significant atherosclerotic plaque noted in the right external carotid artery. Antegrade flow is noted in the right vertebral artery. Left Extracranial There is intimal thickening but no significant atherosclerotic plaque noted in the left common carotid artery. There is heterogeneous, irregular atherosclerotic plaque noted in the left internal carotid artery. There is intimal thickening but no significant atherosclerotic plaque noted in the left external carotid artery. Antegrade flow is noted in the left vertebral artery. Procedure Carotid Duplex [id number]. This is a Carotid Duplex examination using B-mode, color flow and specral Doppler. Exam performed in department. VL/Carotid Duplex Ultrasound Interpretation Summary Mild (<50%) stenosis right extracranial internal carotid. Mild (<50%) stenosis left extracranial internal carotid. Flow within the vertebral arteries is antegrade bilaterally. Ordering Physician: Gaby Gilliland Referring Physician: Gaby Gilliland Performed By: Vanesa Huynh RVT
== END | disposition home or self-care (01) ==
LOC: CVS 09:02
PROVIDERS: PCP Internal Medicine; Referring Provider Internal Medicine; Visit Provider Internal Medicine
DX: I65.22 Occlusion and stenosis of left carotid artery (principal)
CPT/HCPCS: 93880

== ENCOUNTER → 2024-05-25 | Outpatient (CLI) | payer MEDICARE, OTHER, SELFPAY | END | disposition home or self-care (01) | LOC: LABSPEC 15:34 | PROVIDERS: PCP Internal Medicine; Referring Provider Otolaryngology; Visit Provider Otolaryngology | DX: J02.9 Acute pharyngitis, unspecified (principal) | CPT/HCPCS: 87070 ==

== ENCOUNTER → 2024-05-31 | Outpatient (CLI) | payer MEDICARE, OTHER, SELFPAY ==
--- NOTE | 2024-05-31 10:12 | BI_ITS ---
MAMMOGRAPHY - BILATERAL SCREENING REASON FOR EXAM: Female, 73 years old. Routine annual screening examination. PERTINENT HISTORY: Non-contributory. Remote right excisional breast biopsy and bilateral ultrasound breast aspiration. TECHNIQUE: Digital bilateral breast drake (3D mammographic acquisition) in the CC and MLO projections. 2-D mediolateral oblique (MLO) and craniocaudad (CC) views of both breasts were obtained. CAD: Full Field Digital Mammography with Computer Added Detection was performed. COMPARISON: Comparison is made with prior study dated May 12, 2023 and April 29, 2022. FINDINGS: Breast Composition: The breasts are heterogeneously dense, which may obscure small masses. There are no dominant masses or suspicious calcifications. Stable bilateral fat containing axillary lymph nodes. No other significant abnormalities are identified. There has been no significant change since the prior study. BI/SCRN MAMM (CAD)W/DRAKE BILAT IMPRESSION: Stable bilateral screening mammogram. Yearly follow-up mammogram recommended. (A) ASSESSMENT CATEGORY: BIRADS Category 2: Benign. A letter regarding these results will be sent to the patient by the facility within 30 days. Approximately 10% of breast cancers are not detected by mammography. A normal mammogram should not delay biopsy of a clinically suspicious abnormality. [id number] Electronically Signed: Nik Wiggins MD at 11:17 EST ,
--- NOTE | 2024-05-31 10:14 | BD_ITS ---
STUDY: DUAL ENERGY X-RAY ABSORPTIOMETRY / DXA REASON FOR EXAM: Female, 73 years old. [id number] -- Postmenopausal TECHNIQUE: Bone Mineral Density (BMD) measurements of lumbar spine and left forearm were obtained. COMPARISON: Comparison is made with prior study August 22, 2020. FINDINGS: Lumbar Spine (L1-L4): g/cm2 (0.976) / T-score (-0.4) / Z-score (1.9) Findings are suggestive of normal bone density with a low fracture risk. Left Forearm: g/cm2 (0.487) / T-score (-1.7) / Z-score (0.6) The T-Scores on the most recent prior examination were: Lumbar Spine (L1-L4): There has been improvement of bone density since the previous examination. BD/Dexa Bone Density Study IMPRESSION: The patient is considered osteopenic as outlined below according to World Margar[employer] Organization (WHO) criteria with a moderate fracture risk. There has been improvement of bone density since the previous examination. Reference Information: The T-score is the number of standard deviations above or below the standard which is normal for young adults at their peak bone mineral density. The World Health Organization (WHO) interprets the T-scores as follows: Above -1 Normal bone density Between -1 and -2.5 Osteopenia Equal to / or below -2.5 Osteoporosis As a practical clinical guideline, osteopenia may be graded as follows: Mild -1 through -1.5 Moderate -1.6 through -2.0 Severe -2.1 through -2.4 The Z-score is the number of standard deviations above or below age-matched controls. A Z-score of less than -1.5 would be considered abnormal. References: 1. NIH Osteoporosis and Related Bone Diseases www osteo.org 2. International Society for Clinical Densitometry www iscd.org 3. National Osteoporosis Foundation www nof.org Electronically Signed: Nik Wiggins MD at 15:06 EST ,
== END | disposition home or self-care (01) ==
LOC: OPBD 10:10
PROVIDERS: PCP Internal Medicine; Referring Provider Internal Medicine; Visit Provider Internal Medicine
DX: Z13.820 Encounter for screening for osteoporosis (principal); Z78.0 Asymptomatic menopausal state; Z12.31 Encounter for screening mammogram for malignant neoplasm of breast
CPT/HCPCS: 77063; 77067; 77080

== ENCOUNTER → 2024-10-13 | Outpatient (CLI) | payer MEDICARE, OTHER, SELFPAY ==
[2024-10-13 07:48] LABS: Anion Gap 12 (5-15); BUN 29 mg/dL (4-19); BUN/Creat Ratio 29.2 RATIO (10-20); Carbon Dioxide 25.3 mmol/L (21.0-32.0); Chloride 103 mmol/L (98-108); EST Glomerular Filtration Rate 59 (>60); Glucose 96 mg/dL (70-99); Potassium 4.2 mmol/L (3.3-5.1); Sodium Level 140 mmol/L (133-145); Vitamin D,25 Hydroxy 33.2 ng/mL (30-100)
== END | disposition home or self-care (01) ==
LOC: LAB 06:29
PROVIDERS: PCP Internal Medicine; Referring Provider Internal Medicine Endocrinology, Diabetes & Metabolism; Visit Provider Internal Medicine Endocrinology, Diabetes & Metabolism
DX: Z51.81 Encounter for therapeutic drug level monitoring (principal); E55.9 Vitamin D deficiency, unspecified
CPT/HCPCS: 36415; 80048; 82306

== ENCOUNTER → 2025-01-16 | Outpatient (CLI) | payer MEDICARE, OTHER, SELFPAY ==
[2025-01-16 13:25] LABS: Hematocrit 39.0 % (37-47); Hemoglobin 13.0 g/dL (12.0-15.0); Immature Granulocytes Count 0.020 X10^3/uL (0.0-0.0); Mean Corp Hgb Conc 33.3 g/dL (32-36); Mean Corpuscular Volume 90.3 fL (81-99); Mean Platelet Vol. 9.1 fl (6.2-12.0); NRBC Flagged by Analyzer 0 % (0-5); Platelet Count 321 K/mm3 (150-450); RBC Distribution Width CV 12.9 % (11.6-14.6); RBC Distribution Width SD 42.7 fl (35.1-43.9); Red Blood Count 4.32 M/mm3 (4.2-5.4); White Blood Count 6.3 K/mm3 (4.4-11.0)
[2025-01-22 02:07] LABS: Ash, White 3.23 kU/L (Class III); Black Walnut 4.44 kU/L (Class IV); Cat Hair / Dander,Stand 7.45 kU/L (Class IV); Cedar, Mountain 0.37 kU/L (Class I); Cockroach, American 0.31 kU/L (Class 0/I); Dog Epithelia 2.20 kU/L (Class III); Elm, American White 0.98 kU/L (Class II); Mulberry, White 0.20 kU/L (Class 0/I); Oak, White 0.31 kU/L (Class 0/I); Pigweed, Rough 1.62 kU/L (Class III); Ragweed, Short/Common 4.44 kU/L (Class IV); Sycamore, American 0.38 kU/L (Class I)
[2025-01-22 05:06] LABS: Aspirgillus flavus Negative (Neg:<1:1); Aspirgillus fumigatus Negative (Neg:<1:1); Aspirgillus niger Negative (Neg:<1:1); Cytoplasmic Ab (C-ANCA) <1:20 titer (Neg:<1:20); Perinuclear Ab (P-ANCA) <1:20 titer (Neg:<1:20)
== END | disposition home or self-care (01) ==
LOC: LAB 11:35
PROVIDERS: PCP Internal Medicine; Referring Provider Internal Medicine Critical Care Medicine; Visit Provider Internal Medicine Critical Care Medicine
DX: R05.3 Chronic cough (principal); J45.909 Unspecified asthma, uncomplicated
CPT/HCPCS: 36415; 82785; 85025; 86003; 86037; 86606

== ENCOUNTER → 2025-01-18 | Outpatient (CLI) | payer MEDICARE, OTHER, SELFPAY | END | disposition home or self-care (01) | LOC: PSN 08:14 | PROVIDERS: PCP Internal Medicine; Referring Provider Internal Medicine Critical Care Medicine; Visit Provider Internal Medicine Critical Care Medicine | DX: R05.3 Chronic cough (principal); J45.909 Unspecified asthma, uncomplicated | CPT/HCPCS: 94060; 94726; 94729 ==

== ENCOUNTER → 2025-01-25 | Outpatient (CLI) | payer MEDICARE, OTHER, SELFPAY ==
[2025-01-25 11:08] VITALS: PULSE 102; PULSE 103; PULSE 104; PULSE 105; PULSE 82; PULSE 91; PULSE 99; O2SAT 93; O2SAT 94; O2SAT 97; O2SAT 98
--- NOTE | 2025-01-26 10:58 | PCM.PSN.6M ---
PSN 6 Minute Walk Test 6 Minute Walk Test 6 Minute Walk Test: 6 Minute Walk Test PSN:6-Minute Walk Test Start: 01/25/25 11:25 Freq: Status: Active Protocol: [id number] Document 01/25/25 11:08 [facility] (Rec: 01/25/25 11:28 [facility] [id number]) 6 Minute Walk Test Date Performed 01/25/25 Time Performed 11:08 Height 24.02 in Weight: 152 lb Weight in Pounds 152.[address]: Ulysses Oviedo Assistive device Cane used: Pre-test Oxygen Delivery Room Air Method Pulse Ox (%) 98 Pulse Rate (60-100 82 beats/min) Dyspnea Federico Scale ( 0 0-10) Exertion Federico Scale 6 (6-20) 1st minute Oxygen Delivery Room Air Method Pulse Ox (%) 93 Pulse Rate (60-100 99 beats/min) 2nd minute Oxygen Delivery Room Air Method Pulse Ox (%) 94 Pulse Rate (60-100 102 H beats/min) 3rd minute Oxygen Delivery Room Air Method Pulse Ox (%) 93 Pulse Rate (60-100 104 H beats/min) 4th minute Oxygen Delivery Room Air Method Pulse Ox (%) 93 Pulse Rate (60-100 103 H beats/min) 5th minute Oxygen Delivery Room Air Method Pulse Ox (%) 94 Pulse Rate (60-100 103 H beats/min) 6th minute Oxygen Delivery Room Air Method Pulse Ox (%) 93 Pulse Rate (60-100 105 H beats/min) Dyspnea Federico Scale ( 1 0-10) Exertion Federico Scale 7 (6-20) Post-test Oxygen Delivery Room Air Method Pulse Ox (%) 97 Pulse Rate (60-100 91 beats/min) Full Laps Walked 14 Partial Lap, Number 0 of Tiles Walked Total Distance 826 Walked (ft) Interpretation Interpretation: The patient ambulated 826 feet over the course of 6 minutes beginning on room air with the use of a cane. Pretesting oxygen saturation was noted to be 98% on room air. With ambulation, the sol oxygen saturation was 93%. This represents a significant exertional oxygen desaturation, consistent with a pulmonary limitation to exercise tolerance. Recommendations Recommendations: There is no indication for the use of supplemental oxygen at this time. However, close interval follow-up is recommended, given the degree of oxygen desaturation noted during this study.
== END | disposition home or self-care (01) ==
LOC: PSN 10:54
PROVIDERS: PCP Internal Medicine; Referring Provider Internal Medicine Critical Care Medicine; Visit Provider Internal Medicine Critical Care Medicine
DX: R05.3 Chronic cough (principal); J45.909 Unspecified asthma, uncomplicated
CPT/HCPCS: 94618

== ENCOUNTER → 2025-06-11 | Outpatient (CLI) | payer MEDICARE, OTHER, SELFPAY ==
--- NOTE | 2025-06-11 16:00 | BI_ITS ---
EXAM: SCRN MAMM (CAD)W/DRAKE BILAT DATE: 06/11/2025 CLINICAL HISTORY: F, Age 74 y/o , SCREENING BILATERAL TECHNIQUE: Procedure Code: [id number] Modality: MG Procedure: SCRN MAMM (CAD)W/DRAKE BILAT COMPARISON: Prior exam(s) were compared FINDINGS: TISSUE DENSITY: The breasts are heterogeneously dense, which may obscure small masses. Bilateral Breast Mammographic Findings: No significant masses, calcifications or other abnormalities are identified. BI/SCRN MAMM (CAD)W/DRAKE BILAT IMPRESSION: No mammographic evidence of malignancy. OVERALL FINAL ASSESSMENT BI-RADS 1: NEGATIVE. RECOMMENDATION: Routine annual follow-up in 1 Year Additional Recommendation none A letter with findings and recommendations will be mailed to the patient. Reading Location: [id number]
== END | disposition home or self-care (01) ==
PROVIDERS: PCP Internal Medicine; Referring Provider Internal Medicine; Visit Provider Internal Medicine
DX: Z12.31 Encounter for screening mammogram for malignant neoplasm of breast (principal)
CPT/HCPCS: 77063; 77067